=== PATIENT | male | born 1965 | race Caucasian/White ===

== ENCOUNTER 2016-04-24 00:52 | Observation (INO) | payer BC ==
--- NOTE | 2016-04-24 01:15 | EDM.PDOC ---
ED HISTORY OF PRESENT ILLNESS - General Chief Complaint: Chest Pain Stated Complaint: LEFT SHOULDER HURTS Time Seen by Provider: 04/24/16 01:04 - History of Present Illness INITIAL COMMENTS - FREE TEXT/NARRATIVE: 50-year-old male presents to the emergency room with chest pain shoulder pain and arm pain. This started 2 days ago it has not worsened with exertion but not relieved with rest. It started out as shoulder pain radiating down his arm. It extends into his neck. Today it moved into his chest the left side and substernal area. The patient was seen in the clinic this morning was started on muscle relaxants and nonsteroidals. This is made no improvement in his symptoms. the patient has no diaphoresis or redness of breath with the chest pain. the patient has had no headaches. Patient's risk factors include diabetes he is currently not taking his metformin because he cannot afford the detectable on his health plan. The patient also smokes. He is urged to quit. I am unsure of his lipid status. The patient has a alarming family history he has 2 living siblings developed coronary artery disease in a low 50she had another sibling who at age 51 of an acute coronary event, and his mother at age 54 of an acute LA. - Related Data Allergies/ADRs: Allergies Allergy/AdvReac Type Severity Reaction Status Date / Time cefaclor [From Ceclor] Allergy Anaphylactic Verified 04/24/16 01:05 Shock Sulfa (Sulfonamide Allergy Hives Verified 04/24/16 01:05 Antibiotics) Home Meds: Home Meds Cyclobenzaprine [Flexeril] 10 mg PO TID PRN 04/24/16 [History] Relafen 750 mg PO BID 04/24/16 [History] ED ROS GENERAL - Review of Systems Review Of Systems: See Below Constitutional: Reports: no symptoms HEENT: Reports: No symptoms Respiratory: Reports: no symptoms Cardiovascular: Reports: Chest pain Endocrine: Reports: no symptoms GI/Abdominal: Reports: No symptoms : Reports: no symptoms Neurological: Reports: other (his symptoms in part could be related to a process from cervical radiculopathy on down to carpal tunnel syndrome). Denies : confusion, dizziness, headache, numbness Psychiatric: Reports: No symptoms ED EXAM, GENERAL - Physical Exam Exam: See Below Exam Limited By: No limitations General Appearance: alert, no apparent distress, other (he is mildly tachycardic rate around 100 hypertensive at 175/108) Head: atraumatic, normocephalic Neck: normal inspection, supple, non-tender, full range of motion Respiratory/Chest: no respiratory distress, lungs clear, normal breath sounds Cardiovascular: regular rate, rhythm, no edema, no murmur GI/Abdominal: normal bowel sounds, soft, non tender, no organomegaly, no distention, no abnormal bruit, no mass Back Exam: normal inspection. No: CVA tenderness (L), CVA tenderness (R) Extremities: normal inspection, no pedal edema, other (examination of his left arm shows a positive Tinel's sign with distal paresthesias. Phalen's and reverse Phalen's normal palpation in the arm does not reveal any tenderness however above his shoulders in the musculature from the neck on down is tender with palpation) EKG INTERPRETATION EKG Date: 04/24/16 Rhythm: NSR Rate (beats/min): 97 [place]: LAD-left axis deviation P-wave: present QRS: other (fairly normal QRSs what could be a Q wave is noted in lead 3) ST-T: other (subtle nonspecific ST depression laterally and inferiorly) QT: normal NV/PQ Interval: normal Comparison: NA - no prior EKG EKG Interpretation Comments: abnormal no acute changes Course - Vital Signs Last Recorded V/S: Last Vital Signs Temp 36.0 C 04/24/16 00:59 Pulse 99 04/24/16 00:59 Resp 22 H 04/24/16 00:59 BP 138/93 H 04/24/16 01:42 Pulse Ox 99 04/24/16 00:59 - Orders/Labs/Meds Orders: Active Orders 24 hr Category Date Time Status Patient Status [ADT] Stat ADT 04/24/16 02:46 Active EKG 12 Lead [EKG Documentation Completion] [RC] STAT Care 04/24/16 01:33 Active Chest 1V Frontal [CR] Stat Exams 04/24/16 01:33 Ordered Nitroglycerin/D5W [Nitroglycerin 25 MG/D5W 250 ML] Med 04/24/16 02:30 Active 25 mg in 250 ml IV TITRATE Medication Orders Nitroglycerin/Dextrose (Nitroglycerin 25 Mg/D5w 250 Ml) 25 mg in 250 mls @ 3 mls/hr IV TITRATE TRICIA; 5 MCG/MIN PRN Reason: Protocol Last Titration: 04/24/16 02:40 Dose: 10 mcg/min, 6 mls/hr Admin: 04/24/16 02:25 Dose: 5 mcg/min, 3 mls/hr Labs: Laboratory Tests 04/24/16 04/24/16 04/24/16 Range/Units 01:05 01:05 01:05 WBC 9.57 H (4.23-9.07) K/mm3 RBC 5.34 (4.63-6.08) M/mm3 Hgb 16.6 (13.7-17.5) gm/L Hct 48.4 (40.1-51.0) % MCV 90.6 (79.0-92.2) fl MCH 31.1 (25.7-32.2) pg MCHC 34.3 (32.2-35.5) g/dl RDW Std Deviation 46.7 H (35.1-43.9) fL Plt Count 261 (163-337) K/mm3 MPV 9.5 (9.4-12.3) fl Neut % (Auto) 57.8 (34.0-67.9) % Lymph % (Auto) 32.9 (21.8-53.1) % [place] % (Auto) 6.6 (5.3-12.2) % Eos % (Auto) 2.1 (0.8-7.0) Baso % (Auto) 0.4 (0.1-1.2) % Neut # 5.53 H (1.78-5.38) K/mm3 Lymph # 3.15 (1.32-3.57) K/mm3 [place] # 0.63 (0.30-0.82) K/mm3 Eos # 0.20 (0.04-0.54) K/mm3 Baso # 0.04 (0.01-0.08) K/mm3 D-Dimer, Quantitative < 0.19 L (0.19-0.59) mg/L Sodium 138 (136-145) mEq/L Potassium 3.8 (3.5-5.1) mEq/L Chloride 102 (98-107) mEq/L Carbon Dioxide 28 (21-32) mEq/L Anion Gap 11.8 (5-15) BUN 6 L (7-18) mg/dL Creatinine 0.8 (0.7-1.3) mg/dL Est Cr Clr Drug Dosing 127.01 mL/min Estimated GFR (MDRD) > 60 (>60) mL/min BUN/Creatinine Ratio 7.5 L (14-18) Glucose 167 H (74-106) mg/dL Calcium 8.6 (8.5-10.1) mg/dL Total Bilirubin 0.3 (0.2-1.0) mg/dL AST 10 L (15-37) U/L ALT 22 (16-63) U/L Alkaline Phosphatase 109 (46-116) U/L Troponin I < 0.017 (0.00-0.056) ng/mL Total Protein 7.5 (6.4-8.2) g/dl Albumin 4.1 (3.4-5.0) g/dl Globulin 3.4 gm/dL Albumin/Globulin Ratio 1.2 (1-2) Meds: Medications Generic Name Dose Route Start Last Admin Trade Name Freq PRN Reason Stop Dose Admin Nitroglycerin/Dextrose 25 mg in 250 mls @ 3 mls/hr 04/24/16 02:30 04/24/16 02 :40 Nitroglycerin 25 Mg/D5w 250 Ml IV 10 mcg/min TITRATE TRICIA 6 mls/hr Protocol Titration 5 MCG/MIN Discontinued Medications Generic Name Dose Route Start Last Admin Trade Name Freq PRN Reason Stop Dose Admin Aspirin 324 mg 04/24/16 01:18 04/24/16 01:30 Aspirin PO 04/24/16 01:19 324 mg ONETIME ONE Administration Aspirin 325 mg 04/24/16 01:18 04/24/16 01:29 Ecotrin PO 04/24/16 01:19 Not Given ONETIME ONE Aspirin Confirm 04/24/16 01:29 04/24/16 02:35 Aspirin Administered 04/24/16 01:30 Not Given Dose 162 mg .ROUTE .STK-MED ONE Nitroglycerin/Dextrose Confirm 04/24/16 02:22 04/24/16 02:34 Nitroglycerin 25 Mg/D5w 250 Ml Administered 04/24/16 02:23 Not Given Dose 25 mg in 250 mls @ as directed .ROUTE .STK-MED ONE Morphine Sulfate Confirm 04/24/16 01:45 04/24/16 02:35 Morphine Administered 04/24/16 01:46 Not Given Dose 2 mg .ROUTE .STK-MED ONE Morphine Sulfate 2 mg 04/24/16 01:48 04/24/16 01:48 Morphine IVPUSH 04/24/16 01:49 2 mg ONETIME ONE Administration Morphine Sulfate 2 mg 04/24/16 02:06 04/24/16 02:08 Morphine IVPUSH 04/24/16 02:07 2 mg ONETIME STA Administration Morphine Sulfate 2 mg 04/24/16 02:27 04/24/16 02:29 Morphine IVPUSH 04/24/16 02:28 2 mg ONETIME ONE Administration Nitroglycerin 0.4 mg 04/24/16 01:18 04/24/16 01:42 Nitrostat SL 04/24/16 01:29 0.4 mg Q5M PRN Administration Chest Pain - Re-Assessments/Exams Free Text/Narrative Re-Assessment/Exam: 04/24/16 02:58 50-year-old male with a concerning family history presents with what could very easily be cervical radiculopathy however he has chest pain associated with this. He has a very concerning past medical history as well is a very concerning family history initial lab evaluation is unrevealing. The patient was treated with nitroglycerin this did not seem to help much he had modest improvement with morphine. He was started on a nitro drip because pain control is optimal. During the course of his treatment his blood pressure stabilized into a more acceptable range. Because of his concerning personal history and family history the patient will be placed on observation for rule out. Case discussed with Dr. Huff who will accept the patient Departure - Departure Time of Disposition: 02:45 Disposition: Refer to Observation Clinical Impression: Chest pain, Cervical radiculopathy Referrals: PCP,None [Primary Care Provider] - Forms: ED Department Discharge - My Orders Last 24 Hours: My Active Orders 04/24/16 01:33 EKG 12 Lead [EKG Documentation Completion] [RC] STAT Chest 1V Frontal [CR] Stat 04/24/16 02:30 Nitroglycerin/D5W [Nitroglycerin 25 MG/D5W 250 ML] 25 mg in 250 ml IV TITRATE 04/24/16 02:46 Patient Status [ADT] Stat - Assessment/Plan Last 24 Hours: My Active Orders 04/24/16 01:33 EKG 12 Lead [EKG Documentation Completion] [RC] STAT Chest 1V Frontal [CR] Stat 04/24/16 02:30 Nitroglycerin/D5W [Nitroglycerin 25 MG/D5W 250 ML] 25 mg in 250 ml IV TITRATE 04/24/16 02:46 Patient Status [ADT] Stat
[2016-04-24] MEDS ORDERED: Aspirin 325 MG Tab.EC PO ONE (01:18)
[2016-04-24] MEDS ORDERED: Aspirin 81 MG Tab.Chew PO ONE (01:18)
[2016-04-24] MEDS ORDERED: Aspirin 81 MG Tab.Chew ONE (01:29)
[2016-04-24] MEDS: Nitroglycerin 0.4 MG Tab.SL SL PRN ×3 (01:30→01:42)
[2016-04-24] MEDS ORDERED: Morphine 2 MG/ML Syringe ONE (01:45)
[2016-04-24] MEDS ORDERED: Morphine 2 MG/ML Syringe IVPUSH ONE ×2 (01:48→02:27)
[2016-04-24] MEDS ORDERED: Morphine 2 MG/ML Syringe IVPUSH STA (02:06)
[2016-04-24] MEDS ORDERED: Nitroglycerin/D5W 25 MG/250 ML BOTTLE ONE (02:22)
[2016-04-24] MEDS ORDERED: Nitroglycerin/D5W 25 MG/250 ML BOTTLE IV SCH (02:30)
[2016-04-24] MEDS ORDERED: Nitroglycerin 2% Oint 1 GM UD Packet TOP ONE (02:51)
[2016-04-24] MEDS ORDERED: HYDROmorphone 0.5 MG/0.5 ML Syringe IVPUSH ONE (02:53)
[2016-04-24] MEDS ORDERED: HYDROmorphone 0.5 MG/0.5 ML Syringe ONE (02:55)
[2016-04-24] MEDS ORDERED: 50% Dextrose in Water 50 ML Syringe IVPUSH PRN (03:40)
[2016-04-24] MEDS ORDERED: Morphine 2 MG/ML Syringe IVPUSH PRN (03:44)
[2016-04-24] MEDS ORDERED: Ondansetron 4 MG/2 ML SDV IVPUSH PRN (03:44)
[2016-04-24] MEDS ORDERED: LORazepam 2 MG/ML MDV IVPUSH PRN (03:45)
[2016-04-24] MEDS ORDERED: Nitroglycerin 0.4 MG Tab.SL SL PRN (03:46)
[2016-04-24] MEDS ORDERED: Acetaminophen/oxyCODONE 325-5 MG Tab PO PRN (08:34)
[2016-04-24] MEDS: Insulin Aspart 100 Units/ML 3 ML Pen SUBCUT SCH ×2 (08:36→11:25)
[2016-04-24] MEDS ORDERED: Cyclobenzaprine 10 MG Tab PO PRN (08:50)
--- NOTE | 2016-04-24 10:01 | CR ---
Chest: Portable view of the chest was obtained. Comparison: No previous study. Heart size and mediastinum are normal. Minimal atelectasis is noted within both lung bases. Lungs otherwise are clear. Bony structures are grossly intact. Impression: 1. Minimal bibasilar atelectasis. 2. Portable chest x-ray is otherwise unremarkable. Diagnostic code #2
[2016-04-24] MEDS ORDERED: Ketorolac 30 MG/ML SDV IVPUSH ONE (10:41)
[2016-04-24] MEDS ORDERED: Acetaminophen/HYDROcodone 325-10 MG Tab PO PRN (10:45)
[2016-04-24 11:28] VITALS: BP 148/90
--- NOTE | 2016-04-24 13:46 | PCM.HP ---
H&P History of Present Illness - General Date of Service: 04/24/16 Admit Problem/Dx: Admission Diagnosis/Problem Admission Diagnosis/Problem Chest pain Source of Information: Patient, Provider History Limitations: Reports: No limitations - History of Present Illness Initial Comments - Free Text/Narative: 50 year old male with a history of diabetes presents with a complaint of cervical pain not precipitated by trauma associated with left shoulder discomfort as well as numbness in the hands. reportedly woke up 2 days [employer] with the chief complaint. ED physician also stated that he complained of chest pain, but denied it to the hospitalist service. He stated that he has not been able to sleep, received two prescriptions for back discomfort after being seen in an outpatient clinic. He reports taking the medication a full 24 hours before presenting to the ED. The patient has significant risk factors for CAD, he was admitted for a chest pain eval as well as back pain medical management. he has declined a stress test as well as diabetic meds and BS checks this am. He was admitted at 0300 hour today. Onset of Symptoms: Reports: sudden Symptom Onset Date: 04/22/16 Duration of Symptoms: Reports: Day(s):, Getting worse Location: Reports: neck, radiates to: (LUE) Quality: Reports: Sharp, Stabbing Severity: severe Improves with: Reports: None Worsens with: Reports: Movement Context: Reports: rest Associated Symptoms: Reports: weakness (LUE) Left Shoulder Pain Score (Numeric/FACES): 8 - Related Data Allergies/Adverse Reactions: Allergies Allergy/AdvReac Type Severity Reaction Status Date / Time cefaclor [From Ceclor] Allergy Anaphylactic Verified 04/25/16 12:41 Shock Sulfa (Sulfonamide Allergy Hives Verified 04/25/16 12:41 Antibiotics) Home Medications: Home Meds Cyclobenzaprine [Flexeril] 10 mg PO TID PRN 04/24/16 [History] Relafen 750 mg PO BID 04/24/16 [History] Gabapentin [Neurontin] 300 mg PO DAILY #30 cap 04/25/16 [Rx] oxyCODONE HCl/Acetaminophen [Percocet 5-325 mg Tablet] 1 each PO Q6HR PRN #30 tablet 04/25/16 [Rx] Past Medical History HEENT History: Reports: Impaired vision Cardiovascular History: Reports: High cholesterol Respiratory History: Reports: Asthma, Sleep apnea, SOB Other Respiratory History: Pt states all this occured 20 years ago and then he lost 130lbs. Musculoskeletal History: Reports: Amputation Other Musculoskeletal History: left middle finger Neurological History: Reports: Neuropathy, diabetic Endocrine/Metabolic History: Reports: Diabetes, type II Hematologic History: Reports: Hemochromatosis Other Hematologic History: Pt states he had a test came back pos. and was put on treatment for 9 months to make sure he never got it. - Infectious Disease History Infectious Disease History: Reports: Chicken pox, Shingles Other Infectious Disease History: Pt states he thin ks he had shingles once about 15 years ago. - Past Surgical History HEENT Surgical History: Reports: Tonsillectomy Other HEENT Surgeries/Procedures: Tonsilectomy x's2. Cardiovascular Surgical History: Reports: Other (see below) Other Cardiovascular Surgeries/Procedures: Pt states he did not have a stent placed but had a catheter go in through his groin and seperate 2 things 20 years ago. Respiratory Surgical History: Reports: None Endocrine Surgical History: Reports: None Neurological Surgical History: Reports: None Musculoskeletal Surgical History: Reports: Amputation Social & Family History - Family History Family Medical History: Noncontributory Cardiac: Reports: CAD, CT Other Cardiac Family History: father mother brother and grandparents. Brother with stents. Respiratory: Reports: None Other GI Family History: 3 of Father's brothers dies of stomach CA. Endocrine/Metabolic: Reports: Diabetes, type II Oncologic: Reports: Other (see below) Other Oncologic Family History: Stomach CA - Tobacco Use Smoking Status *Q: Current Every Day Smoker Years of Tobacco use: 9 Packs/Tins Daily: 1 - Caffeine Use Caffeine Use: Reports: Soda - Recreational Drug Use Recreational Drug Use: No H&P Review of Systems - Review of Systems: Review Of Systems: See Below General: Reports: no symptoms HEENT: Reports: no symptoms Pulmonary: Reports: no symptoms Cardiovascular: Reports: no symptoms Gastrointestinal: Reports: No symptoms Genitourinary: Reports: no symptoms Musculoskeletal: Reports: neck pain, shoulder pain (left), arm pain (left) Psychiatric: Reports: no symptoms Neurological: Reports: no symptoms Hematologic/Lymphatic: Reports: no symptoms Immunologic: Reports: no symptoms Exam - Exam Exam: See Below - Vital Signs Vital Signs: Last Vital Signs Temp 36.7 C 04/24/16 11:27 Pulse 99 04/24/16 00:59 Resp 16 04/24/16 11:27 BP 148/90 H 04/24/16 11:27 Pulse Ox 98 04/24/16 11:27 Weight: 111.674 kg - Exam Quality Assessment: DVT prophylaxis General: alert, oriented, mild distress HEENT: Conjunctiva clear, EACs clear, EOMI, Mucosa moist & pink, Nares patent, Normal nasal septum, Pupils equal, Pupils reactive Neck: trachea midline, other (decrease motion, pain with active and passive movement.) Lungs: Normal respiratory effort Cardiovascular: regular rate, regular rhythm Abdomen: normal bowel sounds, soft (Male) Exam: Deferred Rectal (Males) Exam: Deferred Back Exam: normal inspection Extremities: normal pulses Skin: warm Neurological: cranial nerves intact Neuro Extensive - Mental Status: alert, oriented x3 Neuro Extensive - Motor, Sensory, Reflexes: CN II-XII intact Psychiatric: alert, depressed, other (flat affect, impulsive, poor insight) - Patient Data Lab Results last 24 hrs: Laboratory Results - last 24 hr 04/24/16 04/24/16 Range/Units 05:02 05:02 Sodium 138 (136-145) mEq/L Potassium 4.2 (3.5-5.1) mEq/L Chloride 104 (98-107) mEq/L Carbon Dioxide 26 (21-32) mEq/L Anion Gap 12.2 (5-15) BUN 7 (7-18) mg/dL Creatinine 0.7 (0.7-1.3) mg/dL Est Cr Clr Drug Dosing 145.15 mL/min Estimated GFR (MDRD) > 60 (>60) mL/min BUN/Creatinine Ratio 10.0 L (14-18) Glucose 176 H (74-106) mg/dL Calcium 8.3 L (8.5-10.1) mg/dL CK-MB (CK-2) 1.6 (0-3.6) ng/ml Troponin I < 0.017 (0.00-0.056) ng/mL Triglycerides 74 (<150) mg/dL Cholesterol 196 (<200) mg/dL LDL Cholesterol Direct 151 H* (<100) mg/dL HDL Cholesterol 45.0 (40-59) mg/dL Result Diagrams: 04/24/16 01:05 04/24/16 05:02 *Q Meaningful Use (ADM) - VTE *Q VTE Criteria *Q: - Stroke *Q Stroke Criteria *Q: - AMI *Q AMI Criteria *Q: - Problem List (1) Depression SNOMED Code(s): 19557776 ICD Code: F32.9 - MAJOR DEPRESSIVE DISORDER, SINGLE EPISODE, UNSPECIFIED Status: Acute Qualifiers: Depression Type: unspecified Qualified Code(s): F32.9 - Major depressive disorder, single episode, unspecified (2) Hyperlipidemia LDL goal <130 SNOMED Code(s): 75419150 ICD Code: E78.5 - HYPERLIPIDEMIA, UNSPECIFIED Status: Chronic (3) Cervical radiculopathy SNOMED Code(s): 36861916 ICD Code: M54.12 - RADICULOPATHY, CERVICAL REGION Status: Acute (4) Chest pain SNOMED Code(s): 98577692 ICD Code: R07.9 - CHEST PAIN, UNSPECIFIED Status: Acute Qualifiers: Chest pain type: unspecified Qualified Code(s): R07.9 - Chest pain, unspecified Problem List Initiated/Reviewed/Updated: Yes Orders Last 24hrs: Active Orders 24 hr Category Date Time Status Patient Status [ADT] Stat ADT 04/24/16 02:54 Active Antiembolic Devices [RC] PER UNIT ROUTINE Care 04/24/16 09:49 Active Bedrest Bathroom Privileges [RC] QSHIFT Care 04/24/16 03:39 Active Blood Glucose Check, Bedside [RC] QIDACANDBED Care 04/24/16 03:39 Active Diabetes Education [RC] DAILY Care 04/24/16 10:12 Active Notify Provider Consults [RC] ASDIRECTED Care 04/24/16 12:22 Active Consult to Case Management [CONS] Routine Cons 04/24/16 09:58 Active Consult to Dietary [Consult to Outreach Specialist] [CONS] Cons 04/24/16 10:13 Active Routine Consult to Physician [CONS] Routine Cons 04/24/16 12:22 Active OT Evaluation and Treatment [CONS] Routine Cons 04/24/16 08:50 Active PT Evaluation and Treatment [CONS] Routine Cons 04/24/16 08:50 Active ADA Diabetic [[place] [employer] Diet] [DIET Diet 04/24/16 Breakfast Active ] Cardiolite Stress Test [Myocardial Perf Spect Multi] [ Exams 04/25/16 06:00 Stop Req NM] Routine Cervical Spine Comp w Cont [MR] Routine Exams 04/24/16 10:44 Ordered BASIC METABOLIC PANEL,BMP [CHEM] Routine Lab 04/25/16 05:00 Ordered CBC WITH AUTO DIFF [HEME] Routine Lab 04/25/16 05:00 Ordered GLYCOSYLATED HEMOGLOBIN,HGBA1C [CHEM] Routine Lab 04/24/16 14:00 Ordered MAGNESIUM [CHEM] Routine Lab 04/25/16 05:00 Ordered TROPONIN I [CHEM] Routine Lab 04/24/16 14:00 Ordered Acetaminophen/HYDROcodone [[place] 325-10 MG] Med 04/24/16 10:45 Active 1 tab PO Q6H PRN Acetaminophen/oxyCODONE [Percocet 325-5 MG] Med 04/24/16 08:34 Active 2 tab PO Q4H PRN Cyclobenzaprine [Flexeril] Med 04/24/16 08:50 Active 10 mg PO TID PRN Dextrose 50% in Water Med 04/24/16 03:40 Active 50 ml IVPUSH ASDIRECTED PRN Insulin Aspart [NovoLOG] Med 04/24/16 07:00 Active See Protocol SUBCUT QIDACANDBED Ketorolac [Toradol] Med 04/24/16 16:45 Active 30 mg IVPUSH Q6H LORazepam [Ativan] Med 04/24/16 03:45 Active 1 mg IVPUSH BEDTIME PRN Morphine Med 04/24/16 03:44 Active 1 mg IVPUSH Q4H PRN Ondansetron [Zofran] Med 04/24/16 03:44 Active 4 mg IVPUSH Q8H PRN Simvastatin [Zocor] Med 04/24/16 21:00 Active 10 mg PO BEDTIME LAUREN Hose [Antiembolic Hose] [OM.PC] Routine Oth 04/24/16 09:49 Ordered Code Status [Resuscitation Status] Routine Resus Stat 04/24/16 03:58 Ordered Medication Orders Acetaminophen/Hydrocodone Bitart ([place] 325-10 Mg) 1 tab PO Q6H PRN PRN Reason: Pain (severe 7-10) Last Admin: 04/24/16 11:23 Dose: 1 tab Cyclobenzaprine HCl (Flexeril) 10 mg PO TID PRN PRN Reason: neck/back pain Last Admin: 04/24/16 12:23 Dose: 10 mg Dextrose/Water (Dextrose 50% In Water) 50 ml IVPUSH ASDIRECTED PRN PRN Reason: Hypoglycemia Insulin Aspart (Novolog) 0 unit SUBCUT QIDACANDBED TRICIA PRN Reason: Protocol Last Admin: 04/24/16 11:25 Dose: Not Given Admin: 04/24/16 08:36 Dose: Not Given Ketorolac Tromethamine (Toradol) 30 mg IVPUSH Q6H [facility] Stop: 04/26/16 16:46 Lorazepam (Ativan) 1 mg IVPUSH BEDTIME PRN PRN Reason: Insomnia Last Admin: 04/24/16 06:02 Dose: 1 mg Morphine Sulfate (Morphine) 1 mg IVPUSH Q4H PRN PRN Reason: Pain Last Admin: 04/24/16 04:38 Dose: 1 mg Ondansetron HCl (Zofran) 4 mg IVPUSH Q8H PRN PRN Reason: Nausea Oxycodone/Acetaminophen (Percocet 325-5 Mg) 2 tab PO Q4H PRN PRN Reason: Pain Simvastatin (Zocor) 10 mg PO BEDTIME [facility] Assessment/Plan Comment:: Impression: CP, atypical CAD risk factors, negative cardiac enzymes Cervical radiculopathy Lipid status unknown Diabetes mellitus Can not exclude depression, very flat affect Plan: Chest pain protocol Back Pain management with analgesics, may benefit from IV steroids. Tobacco cessation education Diabetic teaching MRI of cervical region without contrast. Psych eval as above with Dr Dillard. DVT/GI prophylaxis
--- NOTE | 2016-04-24 15:15 | PCM.DCSUM1 ---
Discharge Summary - Hospital Course Free Text/Narrative:: 50 year old male presented with story of 2 days of cervical pain which also radiated to the LUE. Denied any real chest pain, but has a significant family history of CAD as well as additional risk factors. Stare that the pain occurred without recent trauma, had been seen in a clinic and reportedly toook a full 24 course of NSAID, Relafen as well as Flexeril. The patient did not have ischemia with 2 negative TNs; refused a stress test or statin after haveing a FLP. Stated that, "I will have to get bllod work every 3 months which because of Obamacare, my insurance will not pay for it." He declined any cardiac work up, but did have a 2D echo, the stress test was cancelled. He refused accuchecks, sliding scale insulin coverage, had an MRI ordered for the cervical spine, went to the radiology dept only to state that he is unable to lay down. He was offered the possibility of attempting the study later after he received analgesic. He had declined MSO4 as well as Flexeril in the hospital. He began walking out with his clothes and coat on, refused to sign AMA paperwork after counseling on the danger of leaving. Primary Dx Cervical radiculopathy Atypical CP DM Tobacco Dependence Query Depression - Discharge Data Discharge Date: 04/24/16 Discharge Disposition: Against Medical Advice 07 Condition: Good - Discharge Diagnosis/Problem(s) (1) Depression SNOMED Code(s): 24407560 ICD Code: F32.9 - MAJOR DEPRESSIVE DISORDER, SINGLE EPISODE, UNSPECIFIED Status: Acute Current Visit: Yes Qualifiers: Depression Type: unspecified Qualified Code(s): F32.9 - Major depressive disorder, single episode, unspecified (2) Hyperlipidemia LDL goal <130 SNOMED Code(s): 68125155 ICD Code: E78.5 - HYPERLIPIDEMIA, UNSPECIFIED Status: Chronic Current Visit: Yes (3) Cervical radiculopathy SNOMED Code(s): 84870165 ICD Code: M54.12 - RADICULOPATHY, CERVICAL REGION Status: Acute Current Visit: Yes (4) Chest pain SNOMED Code(s): 42289136 ICD Code: R07.9 - CHEST PAIN, UNSPECIFIED Status: Acute Current Visit: Yes Qualifiers: Chest pain type: unspecified Qualified Code(s): R07.9 - Chest pain, unspecified - Patient Summary/Data Consults: Consultations 04/24/16 08:50 OT Evaluation and Treatment [CONS] Routine PT Evaluation and Treatment [CONS] Routine 04/24/16 09:58 Consult to Case Management [CONS] Routine 04/24/16 10:13 Consult to Dietary [Consult to [employer]] [CONS] Routine 04/24/16 12:22 Consult to Physician [CONS] Routine - Patient Instructions Diet: Heart Healthy Diet, Diabetic Diet Activity: As Tolerated, No Lifting Over 20 Pounds (avoid left arm) Driving: May Drive Today Showering/Bathing: May Shower Notify Provider of: Increased Pain - Discharge Plan Home Medications: Home Meds Aspirin 325 mg PO BID PRN 04/24/16 [History] Cyclobenzaprine [Flexeril] 10 mg PO TID PRN 04/24/16 [History] D-Methorphan/PE/Acetaminophen [Day Time Cold-Flu Softgel] 2 cap PO BID PRN 04/24 [History] Relafen 750 mg PO BID 04/24/16 [History] Patient Handouts: Smoking Cessation, Tips for Success, [id number], Angina Pectoris, [id number] Forms: ED Department Discharge Referrals: PCP,None [Primary Care Provider] - - Discharge Summary/Plan Comment DC Time >30 min.: No - General Info Date of Service: 04/24/16 Functional Status: Reports: tolerating diet, ambulating - Review of Systems General: Reports: no symptoms HEENT: Reports: no symptoms Pulmonary: Reports: no symptoms Cardiovascular: Reports: no symptoms Gastrointestinal: Reports: No symptoms Genitourinary: Reports: no symptoms Musculoskeletal: Reports: neck pain. Denies: no symptoms Skin: Reports: no symptoms Neurological: Reports: no symptoms Psychiatric: Reports: no symptoms - Patient Data Vitals - Most Recent: Last Vital Signs Temp 36.7 C 04/24/16 11:27 Pulse 99 04/24/16 00:59 Resp 16 04/24/16 11:27 BP 148/90 H 04/24/16 11:27 Pulse Ox 98 04/24/16 11:27 Weight - Most Recent: 111.674 kg I&O - Last 24 hours: Intake & Output 04/23/16 04/24/16 04/24/16 22:59 06:59 14:59 Intake Total 0 0 Output Total 0 Balance 0 0 Lab Results - Last 24 hrs: Laboratory Results - last 24 hr 04/24/16 04/24/16 Range/Units 05:02 05:02 Sodium 138 (136-145) mEq/L Potassium 4.2 (3.5-5.1) mEq/L Chloride 104 (98-107) mEq/L Carbon Dioxide 26 (21-32) mEq/L Anion Gap 12.2 (5-15) BUN 7 (7-18) mg/dL Creatinine 0.7 (0.7-1.3) mg/dL Est Cr Clr Drug Dosing 145.15 mL/min Estimated GFR (MDRD) > 60 (>60) mL/min BUN/Creatinine Ratio 10.0 L (14-18) Glucose 176 H (74-106) mg/dL Calcium 8.3 L (8.5-10.1) mg/dL CK-MB (CK-2) 1.6 (0-3.6) ng/ml Troponin I < 0.017 (0.00-0.056) ng/mL Triglycerides 74 (<150) mg/dL Cholesterol 196 (<200) mg/dL LDL Cholesterol Direct 151 H* (<100) mg/dL HDL Cholesterol 45.0 (40-59) mg/dL Med Orders - Current: Current Medications Acetaminophen/Hydrocodone Bitart (Percival 325-10 Mg) 1 tab PO Q6H PRN PRN Reason: Pain (severe 7-10) Last Admin: 04/24/16 11:23 Dose: 1 tab Cyclobenzaprine HCl (Flexeril) 10 mg PO TID PRN PRN Reason: neck/back pain Last Admin: 04/24/16 12:23 Dose: 10 mg Dextrose/Water (Dextrose 50% In Water) 50 ml IVPUSH ASDIRECTED PRN PRN Reason: Hypoglycemia Insulin Aspart (Novolog) 0 unit SUBCUT QIDACANDBED [facility] PRN Reason: Protocol Last Admin: 04/24/16 11:25 Dose: Not Given Ketorolac Tromethamine (Toradol) 30 mg IVPUSH Q6H [facility] Stop: 04/26/16 16:46 Lorazepam (Ativan) 1 mg IVPUSH BEDTIME PRN PRN Reason: Insomnia Last Admin: 04/24/16 06:02 Dose: 1 mg Morphine Sulfate (Morphine) 1 mg IVPUSH Q4H PRN PRN Reason: Pain Last Admin: 04/24/16 04:38 Dose: 1 mg Ondansetron HCl (Zofran) 4 mg IVPUSH Q8H PRN PRN Reason: Nausea Oxycodone/Acetaminophen (Percocet 325-5 Mg) 2 tab PO Q4H PRN PRN Reason: Pain Simvastatin (Zocor) 10 mg PO BEDTIME [facility]ICIA Discontinued Medications Aspirin (Aspirin) 324 mg PO ONETIME ONE Stop: 04/24/16 01:19 Last Admin: 04/24/16 01:30 Dose: 324 mg Aspirin (Ecotrin) 325 mg PO ONETIME ONE Stop: 04/24/16 01:19 Last Admin: 04/24/16 01:29 Dose: Not Given Aspirin (Aspirin) Confirm Administered Dose 162 mg .ROUTE .STK-MED ONE Stop: 04/24/16 01:30 Last Admin: 04/24/16 02:35 Dose: Not Given Hydromorphone HCl (Dilaudid) 0.5 mg IVPUSH ONETIME ONE Stop: 04/24/16 02:54 Last Admin: 04/24/16 02:56 Dose: 0.5 mg Hydromorphone HCl (Dilaudid) Confirm Administered Dose 0.5 mg .ROUTE .STK-MED ONE Stop: 04/24/16 02:56 Last Admin: 04/24/16 03:04 Dose: Not Given Nitroglycerin/Dextrose (Nitroglycerin 25 Mg/D5w 250 Ml) Confirm Administered Dose 25 mg in 250 mls @ as directed .ROUTE .STK-MED ONE Stop: 04/24/16 02:23 Last Admin: 04/24/16 02:34 Dose: Not Given Nitroglycerin/Dextrose (Nitroglycerin 25 Mg/D5w 250 Ml) 25 mg in 250 mls @ 3 mls/hr IV TITRATE TRICIA; 5 MCG/MIN PRN Reason: Protocol Last Titration: 04/24/16 02:40 Dose: 10 mcg/min, 6 mls/hr Ketorolac Tromethamine (Toradol) 60 mg IVPUSH ONETIME ONE Stop: 04/24/16 10:42 Last Admin: 04/24/16 10:52 Dose: 60 mg Morphine Sulfate (Morphine) Confirm Administered Dose 2 mg .ROUTE .STK-MED ONE Stop: 04/24/16 01:46 Last Admin: 04/24/16 02:35 Dose: Not Given Morphine Sulfate (Morphine) 2 mg IVPUSH ONETIME ONE Stop: 04/24/16 01:49 Last Admin: 04/24/16 01:48 Dose: 2 mg Morphine Sulfate (Morphine) 2 mg IVPUSH ONETIME STA Stop: 04/24/16 02:07 Last Admin: 04/24/16 02:08 Dose: 2 mg Morphine Sulfate (Morphine) 2 mg IVPUSH ONETIME ONE Stop: 04/24/16 02:28 Last Admin: 04/24/16 02:29 Dose: 2 mg Nitroglycerin (Nitrostat) 0.4 mg SL Q5M PRN PRN Reason: Chest Pain Stop: 04/24/16 01:29 Last Admin: 04/24/16 01:42 Dose: 0.4 mg Nitroglycerin (Nitro-Bid 2%) 1 gm TOP ONETIME ONE Stop: 04/24/16 02:52 Last Admin: 04/24/16 02:57 Dose: 1 gm Nitroglycerin (Nitrostat) 0.4 mg SL Q5M PRN PRN Reason: Chest Pain Stop: 04/24/16 03:57 - Exam General: Reports: alert, oriented, other (flat affect) HEENT: Reports: Pupils equal, Pupils reactive, EOMI Neck: Reports: trachea midline Lungs: Reports: Normal respiratory effort Cardiovascular: Reports: regular rate, regular rhythm Abdomen: Reports: bowel sounds present, soft, no tenderness, no distension (Male) Exam: Deferred Rectal (Males) Exam: Deferred Back Exam: Reports: normal inspection Extremities: Reports: normal pulses Skin: Reports: warm Neurological: Reports: other (mild numbness left hand, ulnaar region) Psy/Mental Status: Reports: alert, depressed *Q Meaningful Use (DIS) - VTE *Q VTE Criteria *Q: - Stroke *Q Stroke Criteria *Q: - AMI *Q AMI Criteria *Q:
[2016-04-24] MEDS ORDERED: Ketorolac 30 MG/ML SDV IVPUSH SCH (16:45)
[2016-04-24] MEDS ORDERED: Simvastatin 10 MG Tab PO SCH (21:00)
== END 2016-04-24 12:50 | disposition left against medical advice (07) ==
LOC: JD.ED 00:52 → JD.ICU 02:46
PROVIDERS: ADMIT Internal Medicine Cardiovascular Disease; ATTEND Internal Medicine Cardiovascular Disease
DX: R07.89 Other chest pain (principal); M54.12 Radiculopathy, cervical region; E11.21 Type 2 diabetes mellitus with diabetic nephropathy; F17.210 Nicotine dependence, cigarettes, uncomplicated; F32.9 Major depressive disorder, single episode, unspecified; E78.5 Hyperlipidemia, unspecified; E78.00 Pure hypercholesterolemia, unspecified; J45.909 Unspecified asthma, uncomplicated; J98.11 Atelectasis; G47.30 Sleep apnea, unspecified; Z79.1 Long term (current) use of non-steroidal anti-inflammatories (NSAID); Z88.1 Allergy status to other antibiotic agents; Z88.2 Allergy status to sulfonamides; Z82.49 Family history of ischemic heart disease and other diseases of the circulatory system
CPT/HCPCS: 36415; 71010; 80048; 80053; 80061; 82553; 84443; 84484; 85025; 85379; 93005; 93306; 96365; 96375; 96376; 99285; A9270; G0378; J1170; J1885; J2060; J2270

== ENCOUNTER 2016-04-25 12:16 | Emergency (ER) | payer BC ==
[2016-04-25 12:41] VITALS: BP 174/114
[2016-04-25] MEDS ORDERED: Ketorolac 60 MG/2 ML SDV IM ONE (13:04)
--- NOTE | 2016-04-25 13:06 | EDM.PDOC ---
ED HPI Trauma - General Chief Complaint: Upper Extremity Injury/Pain Stated Complaint: LEFT SHOULDER PAIN Time Seen by Provider: 04/25/16 12:56 Source: Reports: Patient History Limitations: Reports: No limitations - History of Present Illness INITIAL COMMENTS - FREE TEXT/NARRATIVE: Patient presents for evaluation treatment of left upper back, left shoulder and left arm pain. Patient reports the pain began suddenly Thursday night around midnight. He was seen on Thursday in the clinic for this he was put on nabumentone and flexeril. He then presented to the ER on Thursday night. He was admitted to the hospital for a chest pain rule out. Troponins and EKG were within normal limits. He did have an echocardiogram done. Refused a stress test. Patient eloped on . Patient states while in the hospital he was given morphine and Dilaudid. He reports that he continued to have pain but this did help with his pain. An MRI of the cervical spine was scheduled, however, he was unable to lay on the MRI bed due to the pain. patient presents today as he states that he is having worsening pain and can no longer take the pain. He reports pain to the left upper back, left shoulder and left arm. He reports numbness and tingling extending into the left arm. He also notes some muscle atrophy to the left arm. He states he has good range of motion of the shoulder. He denies any trauma to his shoulder or back. Patient is left-handed. Pain/Injury Location: Reports: lower extremity, left Allergies/ADRs: Allergies cefaclor [From Ceclor] Allergy (Verified 04/25/16 12:41) Anaphylactic Shock Sulfa (Sulfonamide Antibiotics) Allergy (Verified 04/25/16 12:41) Hives Home Medications: Ambulatory Orders Cyclobenzaprine [Flexeril] 10 mg PO TID PRN 04/24/16 [Confirmed 04/25/16] Relafen 750 mg PO BID 04/24/16 [Confirmed 04/25/16] Gabapentin [Neurontin] 300 mg PO DAILY #30 cap 04/25/16 oxyCODONE HCl/Acetaminophen [Percocet 5-325 mg Tablet] 1 each PO Q6HR PRN #30 tablet 04/25/16 Past Medical History HEENT History: Reports: Impaired vision Cardiovascular History: Reports: High cholesterol Respiratory History: Reports: Asthma, Sleep apnea, SOB Other Respiratory History: Pt states all this occured 20 years ago and then he lost 130lbs. Musculoskeletal History: Reports: Amputation Other Musculoskeletal History: left middle finger Neurological History: Reports: Neuropathy, diabetic Endocrine/Metabolic History: Reports: Diabetes, type II Hematologic History: Reports: Hemochromatosis Other Hematologic History: Pt states he had a test came back pos. and was put on treatment for 9 months to make sure he never got it. - Infectious Disease History Infectious Disease History: Reports: Chicken pox, Shingles Other Infectious Disease History: Pt states he thin ks he had shingles once about 15 years ago. - Past Surgical History HEENT Surgical History: Reports: Tonsillectomy Other HEENT Surgeries/Procedures: Tonsilectomy x's2. Cardiovascular Surgical History: Reports: Other (see below) Other Cardiovascular Surgeries/Procedures: Pt states he did not have a stent placed but had a catheter go in through his groin and seperate 2 things 20 years ago. Respiratory Surgical History: Reports: None Endocrine Surgical History: Reports: None Neurological Surgical History: Reports: None Musculoskeletal Surgical History: Reports: Amputation Social & Family History - Family History Family Medical History: Noncontributory Cardiac: Reports: CAD, [place] Other Cardiac Family History: father mother brother and grandparents. Brother with stents. Respiratory: Reports: None Other GI Family History: 3 of Father's brothers dies of stomach CA. Endocrine/Metabolic: Reports: Diabetes, type II Oncologic: Reports: Other (see below) Other Oncologic Family History: Stomach CA - Tobacco Use Smoking Status *Q: Current Every Day Smoker Years of Tobacco use: 9 Packs/Tins Daily: 1 - Caffeine Use Caffeine Use: Reports: Soda - Recreational Drug Use Recreational Drug Use: No Review of Systems - Review of Systems Review Of Systems: See Below Musculoskeletal: Reports: shoulder pain (left), arm pain (left), back pain ( left upper back). Denies: neck pain Neurological: Reports: numbness, tingling Trauma Exam - Physical Exam Exam: See Below Exam Limited By: No limitations General Appearance: Reports: alert, WD/WN, mild distress Throat/Mouth: Reports: Normal inspection Neck: Reports: normal alignment, normal inspection, painful range of motion ( rotation to the left, flexion and extension cause pain), paraspinous muscle tender (left rhomboid and trap), other (slight muscle atrophy noted to the left trapezius ). Denies: spinous processes tender Respiratory Exam: Reports: no respiratory distress, lungs clear, normal breath sounds Cardiovascular: Reports: normal peripheral pulses, regular rate, rhythm, no murmur Extremities: Reports: no evidence of injury, normal range of motion (left shoulder), non-tender (left shoulder) Neurologic: Reports: alert, normal mood/affect, other (stretcher helper strength 5/5 bilaterally) Skin: Reports: Normal color, Warm/dry Course - Vital Signs Last Recorded V/S: Last Vital Signs Temp 36.8 C 04/25/16 12:37 Pulse 116 H 04/25/16 12:37 Resp 18 04/25/16 12:37 BP 174/114 H 04/25/16 12:37 Pulse Ox 100 04/25/16 12:37 - Orders/Labs/Meds Orders: Active Orders 24 hr Category Date Time Status Peripheral IV Care [RC] . DIRECTED Care 04/25/16 14:44 Active Peripheral IV Insertion Adult [OM.PC] Routine Oth 04/25/16 14:43 Ordered Meds: Medications Discontinued Medications Generic Name Dose Route Start Last Admin Trade Name Freq PRN Reason Stop Dose Admin Ketorolac Tromethamine 60 mg 04/25/16 13:04 04/25/16 13:27 Toradol IM 04/25/16 13:05 60 mg ONETIME ONE Administration Midazolam HCl 2 mg 04/25/16 14:43 04/25/16 15:02 Versed 1 Mg/Ml IVPUSH 04/25/16 14:44 2 mg ONETIME ONE Administration Sodium Chloride 10 ml 04/25/16 14:43 04/25/16 15:03 Saline Flush FLUSH 10 ml ASDIRECTED PRN Administration Keep Vein Open - Radiology Interpretation Free Text/Narrative:: Cervical spine [address] Peres: 1. Degenerative change at C5- C6 and C6-C7 as noted. Thoracic spine [address] Peres : 1. Scattered endplate osteophytes are seen within the lower cervical spine. Scattered anterior and lateral osteophytes are noted within mid and lower thoracic spine. Minimal compression deformities of T8 and T9 are noted which are likely old. Pedicles are intact. No subluxation or fracture is seen. minimal disc space narrowing is noted at T9-t10. MRI cervical spine impression per Dr. Peres: 1. multiple levels of neural foraminal stenosis with diffuse edgenerative chagne as described. 2. Broad based disc bulge at C6-C7 with posterolateral disc herniation to the left side projecting into the left neural foramina causing severe left-sided neural foraminal stenosis. MRI thoracic spine impression per Dr. Peres: 1. Schmorl node deformities with slight associated disc space narrowing which is developmental. 2. No significant posterior disc bulge is seen. - Re-Assessments/Exams Free Text/Narrative Re-Assessment/Exam: 04/25/16 13:17 Patient drove to the ER today. Will give IM toradol for pain relief at this time. 04/25/16 14:38 Reviewed xrays with the patient. He requires an MRI to further evaluate to rule out disc herniation causing cervical rediculopathy. Able to get an MRI today. Offered MRI under sedation, would require pre-op. Patient would like to obtain MRI today. He states he will tolerate pain. Would like to find out what is going on. Will give 2mg IV versed prior to MRI. 04/25/16 16:39 Patient tolerated MRI, had significant pain. Reviewed MRI results with the patient. He requires neurosurgery consultation. Will discharge home at this time with instructions to follow-up Thursday with neurosurgery for appointment. Will start gabapentin and percocet for pain control. Departure - Departure Time of Disposition: 16:28 Disposition: Home, Self-Care 01 Condition: fair Clinical Impression: Herniated disc, cervical Prescriptions: oxyCODONE HCl/Acetaminophen [Percocet 5-325 mg Tablet] 1 each PO Q6HR PRN #30 tablet PRN Reason: Pain (Severe 7-10) Gabapentin [Neurontin] 300 mg PO DAILY #30 cap Instructions: Herniated Disk, [id number] Referrals: PCP,None [Primary Care Provider] - Kae Blue PA-C [Physician Cloth Hand] - Jonnathan Waller MD [Consulting Physician] - Forms: ED Department Discharge Additional Instructions: Call Dr. Waller's office in [place] on Thursday for an appointment. Call . Let them know you have a disc bulge at C6-C7 with herniation to the left projecting into the left neural foramina. MRI has been sent to [facility] in [place]. Percocet 1-2 tabs PO every 4-6 hours prn pain. No driving or operating machinery within 12 hours of taking the percocet. Gabapentin as prescribed. 1 tab PO daily, then 1 tab PO bid, then one tab PO tid and continue on one tab PO tid Please return to the ER for any problems, questions or concerns. Please let ER or Kae Mila know if you need additional help with the referral process. - My Orders Last 24 Hours: My Active Orders 04/25/16 14:43 Peripheral IV Insertion Adult [OM.PC] Routine 04/25/16 14:44 Peripheral IV Care [RC] . DIRECTED - Assessment/Plan Last 24 Hours: My Active Orders 04/25/16 14:43 Peripheral IV Insertion Adult [OM.PC] Routine 04/25/16 14:44 Peripheral IV Care [RC] . DIRECTED
--- NOTE | 2016-04-25 14:16 | CR ---
Cervical spine: AP, swimmer's, lateral and odontoid views were obtained. Comparison: No previous cervical spine imaging. Mild disc space narrowing is noted at C6-C7. Anterior osteophytes are noted at C5-C6 and C6-C7. Calcification noted within the anterior annulus at C6-C7 which is felt to be degenerative in etiology. Mild posterior osteophytes are noted at C6-C7. Prevertebral soft tissues are normal. Vertebral body heights are maintained. No subluxation or fracture is seen. Impression: 1. Degenerative change at C5-C6 and C6-C7 as noted above. Diagnostic code #2
--- NOTE | 2016-04-25 14:16 | CR ---
Thoracic spine: AP, lateral and swimmer's views of the thoracic spine were obtained. Scattered endplate osteophytes are seen within the lower cervical spine. Scattered anterior and lateral osteophytes are noted within mid and lower thoracic spine. Minimal compression deformities of T8 and T9 are noted which are likely old. Pedicles are intact. No subluxation or fracture is seen. Minimal disc space narrowing is noted at T9-T10. Impression: 1. Degenerative change as noted above. Diagnostic code #2
[2016-04-25] MEDS ORDERED: Sodium Chloride 0.9% 10 ML Syringe FLUSH PRN (14:43)
[2016-04-25] MEDS ORDERED: Midazolam 1 MG/ML 2 ML SDV IVPUSH ONE (14:43)
--- NOTE | 2016-04-25 16:04 | MR ---
MRI cervical spine Technique: T2 gradient echo axial images were obtained from above the C2-C3 disc inferiorly through the C7-T1 disc. T1 and T2 weighted sagittal images were obtained through the cervical spine. Comparison: Previous plain film cervical spine study performed on the same day. Findings: C2-C3: Posterior disc is preserved. No central canal stenosis or neural foraminal stenosis is seen. C3-C4: Mild posterior disc space narrowing is noted. Diffuse posterior disc bulge slightly effacing the anterior thecal sac is seen. Moderate bilateral neural foraminal stenosis is seen. No central canal stenosis is believed to be present. C4-C5: Mild posterior disc bulge to the midline is seen. No central canal stenosis is noted. Moderate bilateral neural foraminal stenosis is seen. C5-C6: Anterior disc bulging is noted. Mild diffuse posterior disc bulge is seen. Moderate to severe right-sided neural foraminal stenosis is seen. Mild to moderate left-sided neural foraminal stenosis is seen. C6-C7: Diffuse broad based disc bulge is seen posteriorly. Posterolateral disc herniation is felt to be present to the left side projecting into the origin of the neural foramina causing severe left-sided neural foraminal stenosis. Mild right-sided neural foraminal stenosis is seen. C7-T1: Posterior disc is preserved. No central canal stenosis or neural foraminal stenosis is seen. T1-T2 and T2-T3: Slight posterior disc bulging is seen. No central canal stenosis or neural foraminal stenosis is seen. Slight increased signal is seen within the T1 vertebral body which is felt to be incidental. Cervical cord shows no abnormal signal or mass. Impression: 1. Multiple levels of neural foraminal stenosis with diffuse degenerative change as described above. 2. Broad-based disc bulge at C6-C7 with posterolateral disc herniation to the left side projecting into the left neural foramina causing severe left-sided neural foraminal stenosis. Diagnostic code #3
--- NOTE | 2016-04-25 16:25 | MR ---
MRI thoracic spine Technique: Multiple T1, fat suppressed inversion recovery and T2 weighted sagittal images were obtained the cervical spine as well as T2-weighted axial images. Comparison: Previous thoracic spine plain film study of 04/25/16. Findings: Incidental Schmorl node deformities within the mid and lower thoracic spine are seen. Associated mild disc space narrowing seen at the levels of Schmorl node deformities. Disc bulging is seen within the cervical spine as described on cervical spine MRI. Slight diffuse anterolateral disc bulging is seen to the right side within the mid to lower thoracic spine. No significant posterior disc bulging is seen within the thoracic spine. No central canal stenosis is seen. Neural foramina appear to be patent. Cyst is partially seen within the right kidney measuring 1.4 cm. Thoracic cord shows no abnormal signal or mass. No bone marrow edema is seen within the thoracic spine. Impression: 1. Schmorl node deformities with slight associated disc space narrowing which is developmental. 2. No significant posterior disc bulge is seen. Diagnostic code #2
== END 2016-04-25 17:02 | disposition home or self-care (01) ==
LOC: JD.ED 12:16
DX: M50.20 Other cervical disc displacement, unspecified cervical region (principal); E78.00 Pure hypercholesterolemia, unspecified; G47.30 Sleep apnea, unspecified; F17.210 Nicotine dependence, cigarettes, uncomplicated; Z98.890 Other specified postprocedural states; Z79.899 Other long term (current) drug therapy; Z88.1 Allergy status to other antibiotic agents; Z88.2 Allergy status to sulfonamides
CPT/HCPCS: 72040; 72070; 72141; 72146; 96372; 96374; 99284; J1885; J2250; J7050

== ENCOUNTER 2019-04-07 11:27 | Inpatient (IN) | payer BC ==
[2019-04-07] MEDS ORDERED: Sodium Chloride 0.9% 10 ML Syringe FLUSH PRN ×2 (12:01→12:34)
[2019-04-07] MEDS ORDERED: Sodium Chloride 0.9% 1,000 ML IV SCH (12:15)
--- NOTE | 2019-04-07 12:16 | EDM.PDOC ---
<Rosalinda Maki - Last Filed: 04/07/19 12:23> ED HPI GENERAL MEDICAL PROBLEM - General Chief Complaint: Abdominal Pain Stated Complaint: THROWING UP SINCE MON, LT SIDE PAIN Time Seen by Provider: 04/07/19 11:52 Source of Information: Reports: Patient History Limitations: Reports: No Limitations - History of Present Illness INITIAL COMMENTS - FREE TEXT/NARRATIVE: Patient is a pleasant 53-year-old male who comes to the ED for left lower quadrant pain. He reports that two days ago he experienced 24 hours of vomiting and states he had 300 episodes. During that time period he also reports he had 7 -8 normal bowel movements, not diarrhea. Yesterday, he notes he had about four episodes of vomiting. Yesterday he started developing left lower quadrant pain that he describes as stabbing and can range anywhere from a 5-8/10 in severity. He reports he has not been able to eat in the last 24 hours, but has been able to take sips of fluid. Last bowel movement was yesterday morning. He reports he really has not passed gas in the past 48 hours. Denies noting blood in either stool or vomit. Reports he has felt feverish and had chills over the past two days. Denies chest pain and shortness of breath. Of note, offered patient nausea and pain medications at end of interview to help relieve his pain and increase his comfort while in the ED and he refused at this time. Left Lower Abdomen Pain Score (Numeric/FACES): 5 - Related Data Allergies Allergy/AdvReac Type Severity Reaction Status Date / Time cefaclor [From [facility]] Allergy Anaphylactic Verified 04/07/19 11:43 Shock Sulfa (Sulfonamide Allergy Hives Verified 04/07/19 11:43 Antibiotics) Home Meds: Home Meds Clopidogrel [Plavix] 75 mg PO DAILY 04/07/19 [History] atorvaSTATin Calcium [Lipitor] 20 mg PO DAILY 04/07/19 [History] metFORMIN HCl [Metformin HCl] 1,000 mg PO BID 04/07/19 [History] Past Medical History HEENT History: Reports: Impaired Vision Cardiovascular History: Reports: High Cholesterol, [place] Respiratory History: Reports: Asthma, Sleep Apnea, SOB Other Respiratory History: Pt states all this occured 20 years ago and then he lost 130lbs. Musculoskeletal History: Reports: Amputation Other Musculoskeletal History: left middle finger Neurological History: Reports: Neuropathy, Diabetic Endocrine/Metabolic History: Reports: Diabetes, Type II Hematologic History: Reports: Hemochromatosis Other Hematologic History: Pt states he had a test came back pos. and was put on treatment for 9 months to make sure he never got it. - Infectious Disease History Infectious Disease History: Reports: Chicken Pox, Shingles Other Infectious Disease History: Pt states he thin ks he had shingles once about 15 years ago. - Past Surgical History HEENT Surgical History: Reports: Tonsillectomy Cardiovascular Surgical History: Reports: Coronary Artery Bypass Musculoskeletal Surgical History: Reports: Amputation, Arthroscopic Knee Social & Family History - Family History Family Medical History: Noncontributory Cardiac: Reports: CAD, [place] Other Cardiac Family History: father mother brother and grandparents. Brother with stents. Respiratory: Reports: None Other GI Family History: 3 of Father's brothers dies of stomach CA. Endocrine/Metabolic: Reports: Diabetes, type II Oncologic: Reports: Other (See Below) Other Oncologic Family History: Stomach CA - Tobacco Use Smoking Status *Q: Current Every Day Smoker Years of Tobacco use: 30 Packs/Tins Daily: 0.7 - Caffeine Use Caffeine Use: Reports: Soda - Recreational Drug Use Recreational Drug Use: No ED ROS GENERAL - Review of Systems Review Of Systems: See Below Constitutional: Reports: Fever, Chills, Decreased Appetite. Denies: Weakness, Fatigue Respiratory: Reports: No Symptoms. Denies: Shortness of Breath, Cough Cardiovascular: Reports: No Symptoms. Denies: Chest Pain, Edema, Lightheadedness GI/Abdominal: Reports: Abdominal Pain (left lower quadrant), Nausea, Vomiting. Denies: Bloody Stool, Diarrhea, Flatus (in past 48 hours), Hematemesis : Reports: No Symptoms Musculoskeletal: Reports: No Symptoms. Denies: Back Pain, Muscle Pain Skin: Reports: No Symptoms Neurological: Reports: Headache (intermittent headaches over past two days). Denies: Dizziness, Numbness, Syncope, Tingling, Weakness Psychiatric: Reports: No Symptoms ED EXAM, GI/ABD - Physical Exam Exam: See Below Exam Limited By: No Limitations General Appearance: Alert, WD/WN, No Apparent Distress Head: Atraumatic, Normocephalic Neck: Normal Inspection, Supple, Non-Tender, Full Range of Motion Respiratory/Chest: No Respiratory Distress, Lungs Clear, Normal Breath Sounds, Chest Non-Tender Cardiovascular: Normal Peripheral Pulses, Regular Rate, Rhythm, No Edema, No Murmur GI/Abdominal Exam: Soft, No Organomegaly, No Distention, No Mass, Tender (left upper and lower quadrant, upper > lower), Abnormal Bowel Sounds (decreased ) Back Exam: Normal Inspection, Full Range of Motion Extremities: Normal Inspection, Normal Range of Motion, Non-Tender, Normal Capillary Refill, No Pedal Edema Neurological: Alert, Oriented, Normal Cognition, Normal Gait, No Motor/Sensory Deficits Psychiatric: Normal Affect, Normal Mood Skin Exam: Warm, Dry, Intact, Normal Color, No Rash Course - Vital Signs Last Recorded V/S: Last Vital Signs Temp 96.9 F 04/07/19 11:41 Pulse 102 H 04/07/19 11:41 Resp 16 04/07/19 11:41 BP 133/90 04/07/19 11:41 Pulse Ox 95 04/07/19 16:07 - Orders/Labs/Meds Orders: Active Orders 24 hr Category Date Time Status Patient Status [ADT] Routine ADT 04/07/19 15:52 Active EKG Documentation Completion [RC] ROUTINE Care 04/07/19 16:07 Active Peripheral IV Care [RC] . DIRECTED Care 04/07/19 12:02 Active RT Aerosol Therapy [RC] ASDIRECTED Care 04/07/19 16:07 Active NPO Now [Nothing per Oral Now Diet] [DIET] Diet 04/07/19 Dinner Active UA W/MICROSCOPIC [URIN] Stat Lab 04/07/19 12:14 Ordered Clopidogrel [Plavix] Med 04/08/19 09:00 Active 75 mg PO DAILY Heparin Sodium Med 04/07/19 16:00 Active 5,000 units SUBCUT Q8H Simvastatin [Zocor] Med 04/08/19 21:00 Active 20 mg PO BEDTIME Sodium Chloride 0.9% [Normal Saline] 1,000 ml Med 04/07/19 12:15 Active IV ASDIRECTED Sodium Chloride 0.9% [Saline Flush] Med 04/07/19 12:01 Active 10 ml FLUSH ASDIRECTED PRN Sodium Chloride 0.9% [Saline Flush] Med 04/07/19 12:34 Active 10 ml FLUSH ONETIME PRN ceFAZolin [Ancef] 2 gm Med 04/07/19 16:15 Pending Premix Bag 1 bag IV ONETIME Peripheral IV Insertion Adult [OM.PC] Stat Oth 04/07/19 12:01 Ordered Schedule Procedure [COMM] Routine Oth 04/07/19 15:53 Ordered Medication Orders Clopidogrel Bisulfate (Plavix) 75 mg PO DAILY [facility] Heparin Sodium (Porcine) (Heparin Sodium) 5,000 units SUBCUT Q8H [facility] Sodium Chloride (Normal Saline) 1,000 mls @ 999 mls/hr IV ASDIRECTED TRICIA Last Admin: 04/07/19 12:20 Dose: 999 mls/hr Cefazolin Sodium/Dextrose 2 gm (/ Premix) 50 mls @ 100 mls/hr IV ONETIME ONE Stop: 04/07/19 16:44 Simvastatin (Zocor) 20 mg PO BEDTIME [facility]ICIA Sodium Chloride (Saline Flush) 10 ml FLUSH ASDIRECTED PRN PRN Reason: Keep Vein Open Last Admin: 04/07/19 12:21 Dose: 10 ml Sodium Chloride (Saline Flush) 10 ml FLUSH ONETIME PRN PRN Reason: IV FLUSH Last Admin: 04/07/19 13:39 Dose: 10 ml Labs: Laboratory Tests 04/07/19 04/07/19 04/07/19 Range/Units 12:32 12:32 12:32 WBC 11.61 H (4.23-9.07) K/mm3 RBC 5.26 (4.63-6.08) M/mm3 Hgb 16.5 D (13.7-17.5) gm/dl Hct 49.7 (40.1-51.0) % MCV 94.5 H D (79.0-92.2) fl MCH 31.4 (25.7-32.2) pg MCHC 33.2 (32.2-35.5) g/dl RDW Std Deviation 47.0 H (35.1-43.9) fL Plt Count 266 (163-337) K/mm3 MPV 9.5 (9.4-12.3) fl Neut % (Auto) 74.0 H (34.0-67.9) % Lymph % (Auto) 15.6 L (21.8-53.1) % [place] % (Auto) 8.4 (5.3-12.2) % Eos % (Auto) 1.4 (0.8-7.0) Baso % (Auto) 0.3 (0.1-1.2) % Neut # (Auto) 8.61 H (1.78-5.38) K/mm3 Lymph # (Auto) 1.81 (1.32-3.57) K/mm3 [place] # (Auto) 0.97 H (0.30-0.82) K/mm3 Eos # (Auto) 0.16 (0.04-0.54) K/mm3 Baso # (Auto) 0.03 (0.01-0.08) K/mm3 Sodium 139 (136-145) mEq/L Potassium 3.9 (3.5-5.1) mEq/L Chloride 101 (98-107) mEq/L Carbon Dioxide 30 (21-32) mEq/L Anion Gap 11.9 (5-15) BUN 15 (7-18) mg/dL Creatinine 1.1 (0.7-1.3) mg/dL Est Cr Clr Drug Dosing 91.76 mL/min Estimated GFR (MDRD) > 60 (>60) mL/min BUN/Creatinine Ratio 13.6 L (14-18) Glucose 208 H (74-106) mg/dL Calcium 8.8 (8.5-10.1) mg/dL Total Bilirubin 0.6 (0.2-1.0) mg/dL AST 25 (15-37) U/L ALT 37 (16-63) U/L Alkaline Phosphatase 85 (46-116) U/L C-Reactive Protein 1.8 H* (<1.0) mg/dL Total Protein 7.5 (6.4-8.2) g/dl Albumin 3.6 (3.4-5.0) g/dl Globulin 3.9 gm/dL Albumin/Globulin Ratio 0.9 L (1-2) Lipase 122 (73-393) U/L Meds: Medications Generic Name Dose Route Start Last Admin Trade Name Freq PRN Reason Stop Dose Admin Clopidogrel Bisulfate 75 mg 04/08/19 09:00 Plavix PO DAILY TRICIA Heparin Sodium (Porcine) 5,000 units 04/07/19 16:00 Heparin Sodium SUBCUT Q8H TRICIA Sodium Chloride 1,000 mls @ 999 mls/hr 04/07/19 12:15 04/07/19 12:20 Normal Saline IV 999 mls/hr ASDIRECTED TRICIA Administration Cefazolin Sodium/Dextrose 2 gm 50 mls @ 100 mls/hr 04/07/19 16:15 / Premix IV 04/07/19 16:44 ONETIME ONE Simvastatin 20 mg 04/08/19 21:00 Zocor PO BEDTIME TRICIA Sodium Chloride 10 ml 04/07/19 12:01 04/07/19 12:21 Saline Flush FLUSH 10 ml ASDIRECTED PRN Administration Keep Vein Open Sodium Chloride 10 ml 04/07/19 12:34 04/07/19 13:39 Saline Flush FLUSH 10 ml ONETIME PRN Administration IV FLUSH Discontinued Medications Generic Name Dose Route Start Last Admin Trade Name Freq PRN Reason Stop Dose Admin Albuterol 2.5 mg 04/07/19 16:07 04/07/19 16:23 Proventil Neb Soln NEB 04/07/19 16:08 2.5 mg ONETIME ONE Administration Diatrizoate Meglum/Diatrizoate Sod 120 ml 04/07/19 12:34 04/07/19 13:38 Gastrografin 37% PO 04/07/19 12:35 90 ml ONETIME ONE Administration Famotidine 20 mg 04/07/19 15:52 Pepcid IVPUSH 04/07/19 15:53 ONETIME ONE Famotidine Confirm 04/07/19 16:23 Pepcid Administered 04/07/19 16:24 Dose 20 mg .ROUTE .STK-MED ONE Fentanyl Confirm 04/07/19 15:58 Sublimaze Administered 04/07/19 15:59 Dose 250 mcg .ROUTE .STK-MED ONE Lidocaine HCl Confirm 04/07/19 15:57 Xylocaine-Mpf 1% Administered 04/07/19 15:58 Dose 4 mls @ as directed .ROUTE .STK-MED ONE Iopamidol 100 ml 04/07/19 12:34 04/07/19 13:39 Isovue-300 (61%) IVPUSH 04/07/19 12:35 100 ml ONETIME ONE Administration Iopamidol 50 ml 04/07/19 12:34 04/07/19 13:39 Isovue-300 (61%) IVPUSH 04/07/19 12:35 50 ml ONETIME ONE Administration Midazolam HCl Confirm 04/07/19 15:58 Versed 1 Mg/Ml Administered 04/07/19 15:59 Dose 2 mg .ROUTE .STK-MED ONE Ondansetron HCl Confirm 04/07/19 15:57 Zofran Administered 04/07/19 15:58 Dose 4 mg .ROUTE .STK-MED ONE Propofol Confirm 04/07/19 15:57 Diprivan 20 Ml Administered 04/07/19 15:58 Dose 200 mg .ROUTE .STK-MED ONE Propofol Confirm 04/07/19 16:19 Diprivan 20 Ml Administered 04/07/19 16:20 Dose 200 mg .ROUTE .STK-MED ONE Rocuronium [place] Confirm 04/07/19 15:57 Zemuron Administered 04/07/19 15:58 Dose 50 mg .ROUTE .STK-MED ONE Succinylcholine Chloride Confirm 04/07/19 15:57 Succinylcholine In Ns Pf Administered 04/07/19 15:58 Dose 100 mg .ROUTE .STK-MED ONE Departure - Departure Disposition: DC/Tfer to Critical Access [facility] Clinical Impression: Small bowel obstruction - Discharge Information Sepsis Event Note - Evaluation Sepsis Screening Result: No Definite Risk - Focused Exam Vital Signs: Vital Signs Temp Pulse Resp BP Pulse Ox Pulse Ox 04/07/19 16:07 95 04/07/19 11:41 96.9 F 102 H 16 133/90 99 Date Exam was Performed: 04/07/19 Time Exam was Performed: 12:23 - My Orders Last 24 Hours: My Active Orders 04/07/19 12:01 Sodium Chloride 0.9% [Saline Flush] 10 ml FLUSH ASDIRECTED PRN Peripheral IV Insertion Adult [OM.PC] Stat 04/07/19 12:02 Peripheral IV Care [RC] . DIRECTED 04/07/19 12:14 UA W/MICROSCOPIC [URIN] Stat 04/07/19 12:15 Sodium Chloride 0.9% [Normal Saline] 1,000 ml IV ASDIRECTED 04/07/19 12:34 Sodium Chloride 0.9% [Saline Flush] 10 ml FLUSH ONETIME PRN 04/07/19 15:52 Patient Status [ADT] Routine - Assessment/Plan Last 24 Hours: My Active Orders 04/07/19 12:01 Sodium Chloride 0.9% [Saline Flush] 10 ml FLUSH ASDIRECTED PRN Peripheral IV Insertion Adult [OM.PC] Stat 04/07/19 12:02 Peripheral IV Care [RC] . DIRECTED 04/07/19 12:14 UA W/MICROSCOPIC [URIN] Stat 04/07/19 12:15 Sodium Chloride 0.9% [Normal Saline] 1,000 ml IV ASDIRECTED 04/07/19 12:34 Sodium Chloride 0.9% [Saline Flush] 10 ml FLUSH ONETIME PRN 04/07/19 15:52 Patient Status [ADT] Routine <Terri Alan - Last Filed: 04/07/19 16:27> Course - Re-Assessments/Exams Free Text/Narrative Re-Assessment/Exam: 04/07/19 15:18 WBC is mildly elevated at 11.61. CRP mildly elevated at 1.8. CT of the abdomen shows a dilated loop of small bowel within the mid to left abdomen. This may represent a closed-loop obstruction which is incomplete as contrast is seen distally. With the small bowel at this level is 10.5 cm meters. Radiologist recommends a surgical consult. I did call and speak with Dr. Georges, the on-call general surgeon. He will come see the patient. Discussed this with the patient. He appears very uncomfortable, however continues to refuse any medications for pain or nausea. Advised him that if he changes his mind he should let us know. 04/07/19 15:50 Dr. Georges was here to see patient. Patient will go to surgery for an exploratory laparotomy. Departure - Departure Time of Disposition: 15:50 Condition: Fair Sepsis Event Note - Focused Exam Date Exam was Performed: 04/07/19 Time Exam was Performed: 16:26
[2019-04-07] MEDS ORDERED: Iopamidol 612 MG/ML 50 ML SDV IVPUSH ONE (12:34)
[2019-04-07] MEDS ORDERED: Diatrizoate Meglumine/Diatrizoate Sodium 37% 120 ML Bottle PO ONE (12:34)
[2019-04-07] MEDS ORDERED: Iopamidol 612 MG/ML 100 ML Bottle IVPUSH ONE (12:34)
--- NOTE | 2019-04-07 15:11 | CT ---
CT abdomen and pelvis Technique: Multiple axial sections were obtained from above the dome of the diaphragm inferiorly through the pubic symphysis. Intravenous contrast was utilized. Delayed images were obtained through the bladder. Comparison: No prior CT abdomen or pelvis exam. Findings: There is an unusual dilated loop of bowel within the left upper abdomen. This contains some contrast. Contrast is noted distal to this area. Dilated bowel raises the possibility of a closed loop obstruction which is incompletely occluding. Width of this bowel loop is 10.5 cm and it is felt to be small bowel. Liver contains no focal abnormality. Scarring felt to be present within both lung bases. Spleen appears normal. Kidneys show symmetric contrast enhancement. Several cysts are noted within the right kidney. Adrenal glands show no nodule. Gallbladder contains no calcified gallstones. Pancreas appears within normal limits. Aorta shows no aneurysm. Atherosclerotic change is noted within the aorta. No retroperitoneal adenopathy or mesenteric abnormalities are seen. Diverticuli are seen within the sigmoid colon without inflammatory change diverticulitis. Small fat-containing inguinal hernias are noted. There is mild amount of free fluid within the pelvis. Impression: 1. Dilated loop of small bowel within the mid to left abdomen. This may represent a closed loop obstruction which is incomplete as contrast is seen distally. Width of the bowel at this level is 10.5 cm. Surgical consultation is recommended. 2. Mild amount of free fluid within the pelvis most likely reactive from the small bowel process. 3. Other findings believed to be incidental. Diagnostic code #5 This report was dictated in [place] Standard Time
--- NOTE | 2019-04-07 15:51 | PCM.HP.2 ---
H&P History of Present Illness - General Date of Service: 04/07/19 Admit Problem/Dx: closed loop small bowel obstruction Source of Information: Patient History Limitations: Reports: No Limitations - History of Present Illness Duration of Symptoms: Reports: Day(s): Location: Reports: Abdomen Quality: Reports: Sharp Severity: Severe Associated Symptoms: Reports: Nausea/Vomiting Other HPI/Comments: Mr. Mac is a 53-year-old man who presents to the emergency room with abdominal pain. He noted the abdominal pain began Thursday evening, and it has gradually worsened since onset. He has associated nausea and vomiting, he claims he is vomited over 300 times since his pain began. He has no history of abdominal operations in the past. He has never had a small bowel obstruction. The scan obtained in the emergency room shows a proximal small bowel obstruction , which appears to be a closed-loop obstruction just distal to the ligament of [place], with small bowel dilated to 10 cm in diameter. There is trace free fluid in the pelvis noted as well. Of note, the patient had recent coronary artery bypass graft done 11 months ago and is taking Plavix. Left Lower Abdomen Pain Score (Numeric/FACES): 5 - Related Data Allergies/Adverse Reactions: Allergies Allergy/AdvReac Type Severity Reaction Status Date / Time cefaclor [From Ceclor] Allergy Anaphylactic Verified 04/07/19 11:43 Shock Sulfa (Sulfonamide Allergy Hives Verified 04/07/19 11:43 Antibiotics) Home Medications: Home Meds Clopidogrel [Plavix] 75 mg PO DAILY 04/07/19 [History] atorvaSTATin Calcium [Lipitor] 20 mg PO DAILY 04/07/19 [History] metFORMIN HCl [Metformin HCl] 1,000 mg PO BID 04/07/19 [History] Past Medical History HEENT History: Reports: Impaired Vision Cardiovascular History: Reports: High Cholesterol, [place] Respiratory History: Reports: Asthma, Sleep Apnea, SOB Other Respiratory History: Pt states all this occured 20 years ago and then he lost 130lbs. Musculoskeletal History: Reports: Amputation Other Musculoskeletal History: left middle finger Neurological History: Reports: Neuropathy, Diabetic Endocrine/Metabolic History: Reports: Diabetes, Type II Hematologic History: Reports: Hemochromatosis Other Hematologic History: Pt states he had a test came back pos. and was put on treatment for 9 months to make sure he never got it. - Infectious Disease History Infectious Disease History: Reports: Chicken Pox, Shingles Other Infectious Disease History: Pt states he thin ks he had shingles once about 15 years ago. - Past Surgical History HEENT Surgical History: Reports: Tonsillectomy Cardiovascular Surgical History: Reports: Coronary Artery Bypass Musculoskeletal Surgical History: Reports: Amputation, Arthroscopic Knee Social & Family History - Family History Family Medical History: Noncontributory Cardiac: Reports: CAD, [place] Other Cardiac Family History: father mother brother and grandparents. Brother with stents. Respiratory: Reports: None Other GI Family History: 3 of Father's brothers dies of stomach CA. Endocrine/Metabolic: Reports: Diabetes, type II Oncologic: Reports: Other (See Below) Other Oncologic Family History: Stomach CA - Tobacco Use Smoking Status *Q: Current Every Day Smoker Years of Tobacco use: 30 Packs/Tins Daily: 0.7 - Caffeine Use Caffeine Use: Reports: Soda - Recreational Drug Use Recreational Drug Use: No H&P Review of Systems - Review of Systems: Review Of Systems: See Below General: Reports: No Symptoms HEENT: Reports: No Symptoms Pulmonary: Reports: No Symptoms Cardiovascular: Reports: No Symptoms Gastrointestinal: Reports: Abdominal Pain, Anorexia, Nausea, Vomiting Exam - Exam Exam: See Below - Vital Signs Vital Signs: Last Vital Signs Temp 36.1 C 04/07/19 11:41 Pulse 102 H 04/07/19 11:41 Resp 16 04/07/19 11:41 BP 133/90 04/07/19 11:41 Pulse Ox 99 04/07/19 11:41 Weight: 101.151 kg - Exam General: Alert, Oriented, Cooperative, Mild Distress HEENT: Conjunctiva Clear Neck: Supple Lungs: Clear to Auscultation Cardiovascular: Regular Rate GI/Abdominal Exam: Other (Palpable mass in the left side of the abdomen, exquisitely tender, with rebound and guarding) (Male) Exam: No Hernia Rectal (Males) Exam: Deferred Extremities: Normal Inspection Skin: Warm, Dry Neuro Extensive - Mental Status: Alert, Oriented x3 Neuro Extensive - Motor, Sensory, Reflexes: Normal Gait Psychiatric: Normal Affect, Normal Mood - Patient Data Lab Results Last 24 hrs: Laboratory Results - last 24 hr 04/07/19 04/07/19 04/07/19 Range/Units 12:32 12:32 12:32 WBC 11.61 H (4.23-9.07) K/mm3 RBC 5.26 (4.63-6.08) M/mm3 Hgb 16.5 D (13.7-17.5) gm/dl Hct 49.7 (40.1-51.0) % MCV 94.5 H D (79.0-92.2) fl MCH 31.4 (25.7-32.2) pg MCHC 33.2 (32.2-35.5) g/dl RDW Std Deviation 47.0 H (35.1-43.9) fL Plt Count 266 (163-337) K/mm3 MPV 9.5 (9.4-12.3) fl Neut % (Auto) 74.0 H (34.0-67.9) % Lymph % (Auto) 15.6 L (21.8-53.1) % [place] % (Auto) 8.4 (5.3-12.2) % Eos % (Auto) 1.4 (0.8-7.0) Baso % (Auto) 0.3 (0.1-1.2) % Neut # (Auto) 8.61 H (1.78-5.38) K/mm3 Lymph # (Auto) 1.81 (1.32-3.57) K/mm3 [place] # (Auto) 0.97 H (0.30-0.82) K/mm3 Eos # (Auto) 0.16 (0.04-0.54) K/mm3 Baso # (Auto) 0.03 (0.01-0.08) K/mm3 Sodium 139 (136-145) mEq/L Potassium 3.9 (3.5-5.1) mEq/L Chloride 101 (98-107) mEq/L Carbon Dioxide 30 (21-32) mEq/L Anion Gap 11.9 (5-15) BUN 15 (7-18) mg/dL Creatinine 1.1 (0.7-1.3) mg/dL Est Cr Clr Drug Dosing 91.76 mL/min Estimated GFR (MDRD) > 60 (>60) mL/min BUN/Creatinine Ratio 13.6 L (14-18) Glucose 208 H (74-106) mg/dL Calcium 8.8 (8.5-10.1) mg/dL Total Bilirubin 0.6 (0.2-1.0) mg/dL AST 25 (15-37) U/L ALT 37 (16-63) U/L Alkaline Phosphatase 85 (46-116) U/L C-Reactive Protein 1.8 H* (<1.0) mg/dL Total Protein 7.5 (6.4-8.2) g/dl Albumin 3.6 (3.4-5.0) g/dl Globulin 3.9 gm/dL Albumin/Globulin Ratio 0.9 L (1-2) Lipase 122 (73-393) U/L Result Diagrams: 04/07/19 12:32 04/07/19 12:32 Sepsis Event Note - Evaluation Sepsis Screening Result: No Definite Risk - Focused Exam Vital Signs: Vital Signs Temp Pulse Resp BP Pulse Ox 04/07/19 11:41 36.1 C 102 H 16 133/90 99 Date Exam was Performed: 04/07/19 Time Exam was Performed: 15:46 *Q Meaningful Use (ADM) - VTE Risk Assess *Q Each Risk Factor Represents 1 Point: Age 41 - 59 years, Obesity ( BMI > 25 kg/m2 ) Total Score 1 Point Risk Factors: 2 Each Risk Factor Represents 2 Points: Major surgery greater than 45 minutes Total Score 2 Point Risk Factors: 2 Problem List Initiated/Reviewed/Updated: Yes Orders Last 24hrs: Active Orders 24 hr Category Date Time Status Peripheral IV Care [RC] . DIRECTED Care 04/07/19 12:02 Active UA W/MICROSCOPIC [URIN] Stat Lab 04/07/19 12:14 Ordered Sodium Chloride 0.9% [Normal Saline] 1,000 ml Med 04/07/19 12:15 Active IV ASDIRECTED Sodium Chloride 0.9% [Saline Flush] Med 04/07/19 12:01 Active 10 ml FLUSH ASDIRECTED PRN Sodium Chloride 0.9% [Saline Flush] Med 04/07/19 12:34 Active 10 ml FLUSH ONETIME PRN Peripheral IV Insertion Adult [OM.PC] Stat Oth 04/07/19 12:01 Ordered Medication Orders Sodium Chloride (Normal Saline) 1,000 mls @ 999 mls/hr IV ASDIRECTED TRICIA Last Admin: 04/07/19 12:20 Dose: 999 mls/hr Sodium Chloride (Saline Flush) 10 ml FLUSH ASDIRECTED PRN PRN Reason: Keep Vein Open Last Admin: 04/07/19 12:21 Dose: 10 ml Sodium Chloride (Saline Flush) 10 ml FLUSH ONETIME PRN PRN Reason: IV FLUSH Last Admin: 04/07/19 13:39 Dose: 10 ml Assessment/Plan Comment:: Closed-loop small bowel obstruction, with markedly dilated small bowel concerning for impending infarction. Plan for emergent exploratory laparotomy, possible small bowel resection. The risks and benefits of surgery, including alternatives nonoperative treatment was reviewed with the patient. After discussion of the pathology and recommendation of surgical exploration, the patient has provided informed consent. - Mortality Measure Prognosis:: Good (Guarded prognosis)
[2019-04-07] MEDS ORDERED: Famotidine 20 MG/2 ML SDV IVPUSH ONE ×2 (15:52→21:00)
[2019-04-07] MEDS ORDERED: ceFAZolin 2 GM in Premix Bag 1 BAG IV ONE ×2 (15:54→16:15)
[2019-04-07] MEDS ORDERED: Ondansetron 4 MG/2 ML SDV ONE (15:57)
[2019-04-07] MEDS ORDERED: Propofol 200 MG/20 ML SDV ONE ×2 (15:57→16:19)
[2019-04-07] MEDS ORDERED: Lidocaine 1% 4 ML ONE (15:57)
[2019-04-07] MEDS ORDERED: Succinylcholine/Normal Saline 100 MG/5 ML Syringe ONE (15:57)
[2019-04-07] MEDS ORDERED: Rocuronium 50 MG/5 ML Vial ONE (15:57)
[2019-04-07] MEDS ORDERED: Midazolam 1 MG/ML 2 ML SDV ONE (15:58)
[2019-04-07] MEDS ORDERED: fentaNYL 250 MCG/5 ML SDV ONE (15:58)
[2019-04-07] MEDS ORDERED: Heparin Sodium 5,000 Units/ML Vial SUBCUT SCH (16:00)
[2019-04-07] MEDS ORDERED: Albuterol 0.083% 2.5 MG/3 ML Neb Soln NEB ONE (16:07)
[2019-04-07] MEDS ORDERED: Famotidine 20 MG/2 ML SDV ONE (16:23)
[2019-04-07] MEDS ORDERED: Clindamycin Phosphate 900 MG/6 ML SDV ONE (16:31)
[2019-04-07] MEDS ORDERED: Phenylephrine/Normal Saline 100 MCG/ML 10 ML Syringe ONE ×2 (16:42→17:40)
[2019-04-07] MEDS ORDERED: Sodium Chloride 0.9% 100 ML ONE (16:46)
[2019-04-07] MEDS ORDERED: Bupivacaine 0.5%/EPINEPHrine 1:200,000 50 ML MDV ONE (16:51)
[2019-04-07] MEDS ORDERED: Ketamine 500 mg/10 ML MDV ONE (16:52)
[2019-04-07] MEDS ORDERED: Ondansetron 4 MG/2 ML SDV IVPUSH PRN (17:23)
[2019-04-07] MEDS ORDERED: HYDROmorphone 0.5 MG/0.5 ML Syringe IVPUSH PRN (17:23)
[2019-04-07] MEDS ORDERED: fentaNYL 100 MCG/2 ML SDV IVPUSH PRN (17:23)
--- NOTE | 2019-04-07 17:29 | PCM.PREANE ---
Preanesthetic Assessment - Procedure Proposed Procedure: Exploratory Laparotomy - Anesthesia/Transfusion/Family Hx Anesthesia History: Prior Anesthesia Without Reaction Family History of Anesthesia Reaction: No - Review of Systems General: No Symptoms Pulmonary: Cough (Smoker around a half pack a day. None for 3 days. ) Cardiovascular: No Symptoms (CABG 11 months ago. Follows with cardiology. No cardiac issues since surgery. ) Gastrointestinal: Abdominal Pain, Decreased Appetite, Nausea, Vomiting ( Yesterday many times, none today. ) Neurological: Headache (Mild for the past 2 days on and off. ), Pre-Existing Deficit (Cervical radiculopathy, no pain with full ROM of his neck noted. ) Other: Reports: None, Easy Bleeding, Easy Bruising (On plavix since his heart surgery. ), Diabetes (Type 2, on and off metformin for control, feels the best with his glood glucose 200-250 mg/dl. Currently not taking his metformin. ) - Physical Assessment NPO Status Date: 04/07/19 NPO Status Time: 13:00 Vital Signs: Last Vital Signs Temp 36.8 C 04/07/19 15:25 Pulse 98 04/07/19 15:25 Resp 20 04/07/19 15:25 BP 151/105 H 04/07/19 15:25 Pulse Ox 95 04/07/19 16:07 Height: 1.91 m Weight: 101.151 kg ASA Class: 3 Mental Status: Alert & Oriented x3 Airway Class: Mallampati = 1 Dentition: Reports: Broken Tooth/Teeth, Missing Tooth/Teeth, Caries (Poor dentition, some loose nothing he feels will become dislodged, has to have a couple removed everytime he goes to the dentist. ) Thyro-Mental Finger Breadths: 3 Mouth Opening Finger Breadths: 3 ROM/Head Extension: Full Lungs: Clear to Auscultation, Normal Respiratory Effort Cardiovascular: Regular Rate, Regular Rhythm - Lab Values: Laboratory Last Values WBC 11.61 K/mm3 (4.23-9.07) H 04/07/19 12:32 RBC 5.26 M/mm3 (4.63-6.08) 04/07/19 12:32 Hgb 16.5 gm/dl (13.7-17.5) D 04/07/19 12:32 Hct 49.7 % (40.1-51.0) 04/07/19 12:32 MCV 94.5 fl (79.0-92.2) H D 04/07/19 12:32 MCH 31.4 pg (25.7-32.2) 04/07/19 12:32 MCHC 33.2 g/dl (32.2-35.5) 04/07/19 12:32 RDW Std Deviation 47.0 fL (35.1-43.9) H 04/07/19 12:32 Plt Count 266 K/mm3 (163-337) 04/07/19 12:32 MPV 9.5 fl (9.4-12.3) 04/07/19 12:32 Neut % (Auto) 74.0 % (34.0-67.9) H 04/07/19 12:32 Lymph % (Auto) 15.6 % (21.8-53.1) L 04/07/19 12:32 [place] % (Auto) 8.4 % (5.3-12.2) 04/07/19 12:32 Eos % (Auto) 1.4 (0.8-7.0) 04/07/19 12:32 Baso % (Auto) 0.3 % (0.1-1.2) 04/07/19 12:32 Neut # (Auto) 8.61 K/mm3 (1.78-5.38) H 04/07/19 12:32 Lymph # (Auto) 1.81 K/mm3 (1.32-3.57) 04/07/19 12:32 [place] # (Auto) 0.97 K/mm3 (0.30-0.82) H 04/07/19 12:32 Eos # (Auto) 0.16 K/mm3 (0.04-0.54) 04/07/19 12:32 Baso # (Auto) 0.03 K/mm3 (0.01-0.08) 04/07/19 12:32 Sodium 139 mEq/L (136-145) 04/07/19 12:32 Potassium 3.9 mEq/L (3.5-5.1) 04/07/19 12:32 Chloride 101 mEq/L (98-107) 04/07/19 12:32 Carbon Dioxide 30 mEq/L (21-32) 04/07/19 12:32 Anion Gap 11.9 (5-15) 04/07/19 12:32 BUN 15 mg/dL (7-18) 04/07/19 12:32 Creatinine 1.1 mg/dL (0.7-1.3) 04/07/19 12:32 Est Cr Clr Drug Dosing 91.76 mL/min 04/07/19 12:32 Estimated GFR (MDRD) > 60 mL/min (>60) 04/07/19 12:32 BUN/Creatinine Ratio 13.6 (14-18) L 04/07/19 12:32 Glucose 208 mg/dL (74-106) H 04/07/19 12:32 Calcium 8.8 mg/dL (8.5-10.1) 04/07/19 12:32 Total Bilirubin 0.6 mg/dL (0.2-1.0) 04/07/19 12:32 AST 25 U/L (15-37) 04/07/19 12:32 ALT 37 U/L (16-63) 04/07/19 12:32 Alkaline Phosphatase 85 U/L (46-116) 04/07/19 12:32 C-Reactive Protein 1.8 mg/dL (<1.0) H* 04/07/19 12:32 Total Protein 7.5 g/dl (6.4-8.2) 04/07/19 12:32 Albumin 3.6 g/dl (3.4-5.0) 04/07/19 12:32 Globulin 3.9 gm/dL 04/07/19 12:32 Albumin/Globulin Ratio 0.9 (1-2) L 04/07/19 12:32 Lipase 122 U/L (73-393) 04/07/19 12:32 - Imaging/EKG Impressions: Reviewed by myself and Dr. Fonseca. - Allergies Allergies/Adverse Reactions: Allergies Allergy/AdvReac Type Severity Reaction Status Date / Time cefaclor [From [facility]] Allergy Anaphylactic Verified 04/07/19 11:43 Shock Sulfa (Sulfonamide Allergy Hives Verified 04/07/19 11:43 Antibiotics) - Anesthesia Plan Pre-Op Medication Ordered: Antacids (Famotadine 20 mg IVP. ) - Acknowledgements Anesthesia Type Planned: General Anesthesia Pt an Appropriate Candidate for the Planned Anesthesia: Yes Alternatives and Risks of Anesthesia Discussed w Pt/Guardian: Yes Pt/Guardian Understands and Agrees with Anesthesia Plan: Yes PreAnesthesia Questionnaire HEENT History: Reports: Impaired Vision Cardiovascular History: Reports: High Cholesterol, [place] Respiratory History: Reports: Asthma, Sleep Apnea, SOB Other Respiratory History: Pt states all this occured 20 years ago and then he lost 130lbs. Musculoskeletal History: Reports: Amputation Other Musculoskeletal History: left middle finger Neurological History: Reports: Neuropathy, Diabetic Endocrine/Metabolic History: Reports: Diabetes, Type II Hematologic History: Reports: Hemochromatosis Other Hematologic History: Pt states he had a test came back pos. and was put on treatment for 9 months to make sure he never got it. - Infectious Disease History Infectious Disease History: Reports: Chicken Pox, Shingles Other Infectious Disease History: Pt states he thin ks he had shingles once about 15 years ago. - Past Surgical History HEENT Surgical History: Reports: Tonsillectomy Cardiovascular Surgical History: Reports: Coronary Artery Bypass Musculoskeletal Surgical History: Reports: Amputation, Arthroscopic Knee - SUBSTANCE USE Smoking Status *Q: Current Every Day Smoker Recreational Drug Use History: No - HOME MEDS Home Medications: Home Meds Clopidogrel [Plavix] 75 mg PO DAILY 04/07/19 [History] atorvaSTATin Calcium [Lipitor] 20 mg PO DAILY 04/07/19 [History] metFORMIN HCl [Metformin HCl] 1,000 mg PO BID 04/07/19 [History] - CURRENT (IN HOUSE) MEDS Current Meds: Current Medications Clopidogrel Bisulfate (Plavix) 75 mg PO DAILY [facility] Heparin Sodium (Porcine) (Heparin Sodium) 5,000 units SUBCUT Q8H [facility] Sodium Chloride (Normal Saline) 1,000 mls @ 999 mls/hr IV ASDIRECTED [facility] Last Admin: 04/07/19 12:20 Dose: 999 mls/hr Simvastatin (Zocor) 20 mg PO BEDTIME [facility] Sodium Chloride (Saline Flush) 10 ml FLUSH ASDIRECTED PRN PRN Reason: Keep Vein Open Last Admin: 04/07/19 12:21 Dose: 10 ml Discontinued Medications Albuterol (Proventil Neb Soln) 2.5 mg NEB ONETIME ONE Stop: 04/07/19 16:08 Last Admin: 04/07/19 16:23 Dose: 2.5 mg Bupivacaine HCl/Epinephrine Bitart (Marcaine 0.5%/Epinephrine 1:200,000) Confirm Administered Dose 50 ml .ROUTE .STK-MED ONE Stop: 04/07/19 16:52 Clindamycin Phosphate (Cleocin) Confirm Administered Dose 900 mg .ROUTE .STK- MED ONE Stop: 04/07/19 16:32 Diatrizoate Meglum/Diatrizoate Sod (Gastrografin 37%) 120 ml PO ONETIME ONE Stop: 04/07/19 12:35 Last Admin: 04/07/19 13:38 Dose: 90 ml Famotidine (Pepcid) 20 mg IVPUSH ONETIME ONE Stop: 04/07/19 15:53 Famotidine (Pepcid) Confirm Administered Dose 20 mg .ROUTE .STK-MED ONE Stop: 04/07/19 16:24 Fentanyl (Sublimaze) Confirm Administered Dose 250 mcg .ROUTE .STK-MED ONE Stop: 04/07/19 15:59 Lidocaine HCl (Xylocaine-Mpf 1%) Confirm Administered Dose 4 mls @ as directed .ROUTE .ST-MED ONE Stop: 04/07/19 15:58 Sodium Chloride (Normal Saline) Confirm Administered Dose 100 mls @ as directed .ROUTE .STK-MED ONE Stop: 04/07/19 16:47 Iopamidol (Isovue-300 (61%)) 100 ml IVPUSH ONETIME ONE Stop: 04/07/19 12:35 Last Admin: 04/07/19 13:39 Dose: 100 ml Iopamidol (Isovue-300 (61%)) 50 ml IVPUSH ONETIME ONE Stop: 04/07/19 12:35 Last Admin: 04/07/19 13:39 Dose: 50 ml Ketamine HCl (Ketalar) Confirm Administered Dose 500 mg .ROUTE .STK-MED ONE Stop: 04/07/19 16:53 Midazolam HCl (Versed 1 Mg/Ml) Confirm Administered Dose 2 mg .ROUTE .STK-MED ONE Stop: 04/07/19 15:59 Ondansetron HCl (Zofran) Confirm Administered Dose 4 mg .ROUTE .STK-MED ONE Stop: 04/07/19 15:58 Phenylephrine HCl (Phenylephrine In Ns 100 Mcg/Ml) Confirm Administered Dose 1 mg .ROUTE .STK-MED ONE Stop: 04/07/19 16:43 Propofol (Diprivan 20 Ml) Confirm Administered Dose 200 mg .ROUTE .STK-MED ONE Stop: 04/07/19 15:58 Propofol (Diprivan 20 Ml) Confirm Administered Dose 200 mg .ROUTE .STK-MED ONE Stop: 04/07/19 16:20 Rocuronium [place] (Zemuron) Confirm Administered Dose 50 mg .ROUTE .STK-MED ONE Stop: 04/07/19 15:58 Sodium Chloride (Saline Flush) 10 ml FLUSH ONETIME PRN PRN Reason: IV FLUSH Last Admin: 04/07/19 13:39 Dose: 10 ml Succinylcholine Chloride (Succinylcholine In Ns Pf) Confirm Administered Dose 100 mg .ROUTE .STK-MED ONE Stop: 04/07/19 15:58
[2019-04-07] MEDS ORDERED: metroNIDAZOLE/Normal Saline 100 ML ONE (17:59)
[2019-04-07] MEDS ORDERED: fentaNYL 100 MCG/2 ML SDV ONE (18:06)
[2019-04-07] MEDS ORDERED: Ketorolac 30 MG/ML SDV ONE (18:09)
[2019-04-07] MEDS ORDERED: Neostigmine Methylsulfate 1 MG/ML 5 ML Syringe ONE (18:09)
[2019-04-07] MEDS ORDERED: Morphine 4 MG/ML Syringe IVPUSH PRN (18:35)
--- NOTE | 2019-04-07 18:47 | PCM.POSTAN ---
POST ANESTHESIA ASSESSMENT - MENTAL STATUS Mental Status: Other (Drowsy) - VITAL SIGNS Vital Signs: Last Vital Signs Temp 36.8 C 04/07/19 15:25 Pulse 98 04/07/19 15:25 Resp 20 04/07/19 15:25 BP 151/105 H 04/07/19 15:25 Pulse Ox 95 04/07/19 16:07 1837 127/63 68 17 97% 99.4F - RESPIRATORY Respiratory Status: Respiratory Rate WNL, Airway Patent, O2 Saturation Stable, Supplemental Oxygen - CARDIOVASCULAR CV Status: Pulse Rate WNL, Blood Pressure Stable - GASTROINTESTINAL GI Status: No Symptoms - PAIN Pain Score: 0 - POST OP HYDRATION Hydration Status: Adequate & Stable
--- NOTE | 2019-04-07 18:52 | PCM.PRNOTE ---
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 No perforation. Ileocecectomy performed, with side to side stapled ileocolic anastomosis. Detailed Report: The patient was taken from the emergency room to the operating room for exploratory laparotomy, with diagnosis of closed-loop bowel obstruction. He was placed supine on the table, and general endotracheal anesthesia was initiated. Timeout was performed, and the abdomen was clipped and prepped and draped in usual sterile fashion. 10 cc of 0.5% Marcaine with epinephrine was injected along the midline planned incision. The 10 blade scalpel was used to make a midline incision from the subxiphoid region to just inferior to the umbilicus. Monopolar energy was used to dissect down to the fascia, and the peritoneal cavity was entered safely after raising the peritoneum with clamps and incising it with scissors. The incision was extended, and the Bookwalter retractor was set up to optimize exposure. There was a fixed, dilated loop of bowel palpable in the left upper quadrant. Careful inspection revealed that there was a cecal volvulus, with the cecum markedly dilated and ischemic in appearance. Once this area of concern was isolated, the colon was detorsed. A 55 mm linear KANWAL cutting stapler with blue loads was used to divide the terminal ileum proximately 10 cm proximal to the ileocecal valve and a site of healthy bowel. Another load from the stapler was used to divide the proximal transverse colon just beyond the area of volvulus. The mesentery was taken using the LigaSure. The specimen was passed off the table, and the proximal transverse colon was mobilized. The terminal ileum was then mobilized as well so that the 2 stapled ends came together without tension. The antimesenteric side of the small bowel was aligned with the tinea of the transverse colon, and 2 small enterotomies were made with the monopolar to permit a linear cutting stapler for [id number] anastomosis. This was performed, and the remaining enterotomy was closed with a 30 mm TA stapler. Imbricating Lembert sutures with Vicryl were placed over the TA staple line. The anastomosis felt patent, and a reinforcing suture was placed at the crotch of the staple line. Omentum was then tucked over the anastomosis, and the small bowel was reduced into the abdomen, and the mesentery did not appear twisted. The mesenteric defect from the resection was not closed due to its large size. There was minimal contamination after making enterotomies for the anastomosis. The abdomen was thoroughly irrigated with warm sterile saline solution, and suctioned dry. The Bookwalter retractor was then disassembled, and the midline incision was closed at the level of the fascia with running #1 PDS suture. The skin was closed with skin carmel, and a Mepilex dressing was applied. The patient tolerated the procedure well, was extubated in the operating room and transferred to the recovery room for ongoing care. Bunny Georges MD General Surgery
[2019-04-07] MEDS ORDERED: Acetaminophen 325 MG Tab PO SCH (20:00)
[2019-04-07] MEDS: Acetaminophen 325 MG Tab PO SCH (20:59)
[2019-04-07] MEDS: Heparin Sodium 5,000 Units/ML Vial SUBCUT SCH (21:05)
[2019-04-07] MEDS: Lactated Ringers 1,000 ML IV SCH (21:44)
[2019-04-08] MEDS: Acetaminophen 325 MG Tab PO SCH ×3 (04:13→22:09)
[2019-04-08] MEDS: Heparin Sodium 5,000 Units/ML Vial SUBCUT SCH ×3 (04:14→22:08)
[2019-04-08] MEDS: oxyCODONE 5 MG Tab PO PRN ×4 (04:29→22:18)
[2019-04-08] MEDS: Lactated Ringers 1,000 ML IV SCH (07:36)
--- NOTE | 2019-04-08 07:54 | PCM48HPAN ---
Post Anesthesia Note - EVALUATION WITHIN 48HRS OF ANESTHETIC Vital Signs in Normal Range: Yes Patient Participated in Evaluation: Yes Respiratory Function Stable: Yes Airway Patent: Yes Cardiovascular Function Stable: Yes Hydration Status Stable: Yes Pain Control Satisfactory: Yes Nausea and Vomiting Control Satisfactory: Yes Mental Status Recovered: Yes (Little pain- wondering when he will get ng out- informed will see) Vital Signs: Last Vital Signs Temp 98.8 F 04/08/19 04:00 Pulse 85 04/08/19 04:00 Resp 20 04/08/19 04:00 BP 156/86 H 04/08/19 04:00 Pulse Ox 94 L 04/08/19 04:00
[2019-04-08] MEDS ORDERED: Insulin Lispro 100 Units/ML 3 ML Vial SUBCUT SCH (08:45)
--- NOTE | 2019-04-08 08:54 | PCM.SN ---
- Free Text/Narrative Note: POD 1 s/p ileocecectomy for cecal volvulus, did well overnight. S: complains about NG tube. Pain controlled. O: AF-SBP 150s, HR 80s, SpO2 mid 90% on room air Gen: awake and alert HEENT: NG with minimal clear output Pulm: comfortable on room air Abd: appropriately tender, dressing intact : rivera catheter in place A: Looks good this morning, with good UOP and minimal NG output. P: -no change to analgesia regimen -up to chair, up walking starting today -switch IVF to D5 1/2 NS w KCl @ 75 cc/hr -remove NG, start clears -remove rivera catheter, f/u trial of void -insulin sliding scale -continue home meds -heparin 5000 u SC q8h for DVT ppx, SCDs
[2019-04-08] MEDS: Clopidogrel 75 MG Tab PO SCH (08:57)
[2019-04-08] MEDS ORDERED: Morphine 2 MG/ML Syringe IVPUSH PRN (09:04)
[2019-04-08] MEDS: D5 1/2 NS w/ 20 mEq/L KCl 1,000 ML IV SCH ×2 (10:33→22:18)
[2019-04-08] MEDS: Insulin Lispro 100 Units/ML 3 ML Vial SUBCUT SCH ×3 (12:16→22:22)
[2019-04-08] MEDS: Simvastatin 20 MG Tab PO SCH (22:10)
[2019-04-09] MEDS ORDERED: Ondansetron 4 MG/2 ML SDV IVPUSH PRN (04:40)
[2019-04-09] MEDS: Heparin Sodium 5,000 Units/ML Vial SUBCUT SCH ×3 (04:56→20:36)
[2019-04-09] MEDS: Acetaminophen 325 MG Tab PO SCH ×3 (04:56→20:36)
[2019-04-09] MEDS: Clopidogrel 75 MG Tab PO SCH (08:06)
[2019-04-09] MEDS: Insulin Lispro 100 Units/ML 3 ML Vial SUBCUT SCH ×4 (08:08→21:10)
[2019-04-09] MEDS ORDERED: Promethazine 12.5 MG in Sodium Chloride 0.9% 50 ML IV PRN (09:14)
--- NOTE | 2019-04-09 09:20 | PCM.SN ---
- Free Text/Narrative Note: POD 2 s/p ileocecectomy for cecal volvulus S: some nausea and belching overnight. No emesis. Pain controlled, ambulating, voiding. No flatus. O: AF-VSS Awake and alert, no distress Comfortable on room air RRR Abd soft, not distended, appropriately tender, midline incision looks good A: Recovering well after ileocecectomy P: -tylenol sched, oxy prn pain; d/c morphine -jennifer -advance to regular diet -zofran, phenergan prn nausea -OOB walking TID -heparin SC, SCDs DVT ppx -anticipate discharge within a few days, once bowel function returns
[2019-04-09] MEDS: oxyCODONE 5 MG Tab PO PRN ×2 (14:48→22:55)
[2019-04-09] MEDS: Simvastatin 20 MG Tab PO SCH (20:37)
[2019-04-10] MEDS: Acetaminophen 325 MG Tab PO SCH ×3 (05:02→20:30)
[2019-04-10] MEDS: Heparin Sodium 5,000 Units/ML Vial SUBCUT SCH ×3 (05:02→20:30)
[2019-04-10] MEDS: Insulin Lispro 100 Units/ML 3 ML Vial SUBCUT SCH ×4 (07:02→21:01)
[2019-04-10] MEDS: Clopidogrel 75 MG Tab PO SCH (08:01)
--- NOTE | 2019-04-10 13:20 | PCM.SN ---
- Free Text/Narrative Note: POD 3 s/p ileocecectomy for cecal volvulus S: no complaints. Reports some belching and some flatus. No nausea, tolerating regular diet. Taking tylenol only for pain. O: AF-VSS No distress comfortable on room air RRR Abd soft, minimally tender, no distention A: Recovering nicely from his operation, bowel function returning. P: Add miralax, monitor overnight. Anticipate discharge to home tomorrow if continuing to do well.
[2019-04-10] MEDS: Docusate Sodium 100 MG Cap PO SCH (14:10)
[2019-04-10] MEDS: Polyethylene Glycol 3350 Powder 17 GM Packet PO SCH ×2 (14:11→20:30)
[2019-04-10] MEDS: Simvastatin 20 MG Tab PO SCH (20:31)
[2019-04-11] MEDS: Heparin Sodium 5,000 Units/ML Vial SUBCUT SCH ×2 (06:17→12:59)
[2019-04-11] MEDS: Acetaminophen 325 MG Tab PO SCH ×2 (06:17→13:00)
[2019-04-11] MEDS: Insulin Lispro 100 Units/ML 3 ML Vial SUBCUT SCH ×2 (06:18→11:33)
--- NOTE | 2019-04-11 08:37 | PCM.SN ---
- Free Text/Narrative Note: POD 4 s/p ileocecectomy for cecal volvulus S: nausea, bloating and belching last night, better now, but not really passing flatus O: AF-VSS awake and alert, no distress comfortable on room air RRR abd slightly more distended and tympanitic, soft, appropriately tender, midline incision without cellulitis or drainage A: Awaiting resolution of post-operative ileus, otherwise patient appears to be doing well P: discontinue miralax slow with PO intake, await return of flatus/BM
[2019-04-11] MEDS: Clopidogrel 75 MG Tab PO SCH (08:50)
[2019-04-11] MEDS: Docusate Sodium 100 MG Cap PO SCH (08:50)
[2019-04-11 14:26] VITALS: BP 156/83; PULSE 88
--- NOTE | 2019-04-11 18:41 | PCM.DCSUM1 ---
Discharge Summary - Hospital Course Free Text/Narrative:: Presented to emergency department on 04/07 with a few days of severe abdominal pain and CT scan showing closed loop bowel obstruction. He was stable at the time of evaluation, and taken promptly to the OR for laparotomy. Cecal volvulus was found in the OR, with extremely distended and ischemic cecum. Ileocecectomy with stapled side to side ileocolic anastomosis was completed. The patient had an uneventful post-operative course, kept in the hospital until the evening of POD 4 when return of bowel function was confirmed. Diagnosis: Stroke: No - Discharge Data Discharge Date: 04/11/19 Discharge Disposition: Home, Self-Care 01 Condition: Good - Referral to Home Health Primary Care Physician: Nellie Colby PA-C - Patient Summary/Data Operative Procedure(s) Performed: laparotomy, ileocecectomy Complications: none Recommended Follow-up Testing/Procedures: Plan for follow up in Surgery Clinic 04/20 for post-op eval and staple removal - Patient Instructions Diet: Regular Diet as Tolerated Activity: As Tolerated, No Lifting Over 10 Pounds Showering/Bathing: May Shower Wound/Incision Care: Keep Operative Site/Wound Site Clean and Dry Notify Provider of: Fever, Increased Pain, Swelling and Redness, Drainage, Nausea and/or Vomiting - Discharge Plan *PRESCRIPTION DRUG MONITORING PROGRAM REVIEWED*: Not Applicable *COPY OF PRESCRIPTION DRUG MONITORING REPORT IN PATIENT LOREN: Not Applicable Prescriptions/Med Rec: oxyCODONE 5 mg PO Q4H PRN #10 tab PRN Reason: Pain Home Medications: Home Meds Clopidogrel [Plavix] 75 mg PO DAILY 04/07/19 [History] atorvaSTATin Calcium [Lipitor] 20 mg PO DAILY 04/07/19 [History] metFORMIN HCl [Metformin HCl] 1,000 mg PO BID 04/07/19 [History] oxyCODONE 5 mg PO Q4H PRN #10 tab 04/11/19 [Rx] Oxygen Therapy Mode: Room Air Patient Handouts: Steps to Quit Smoking Forms: ED Department Discharge Referrals: Nellie Colby PA-C [Primary Care Provider] - - Discharge Summary/Plan Comment DC Time >30 min.: No - Patient Data Vitals - Most Recent: Last Vital Signs Temp 36.7 C 04/11/19 14:23 Pulse 88 04/11/19 14:23 Resp 20 04/11/19 14:23 BP 156/83 H 04/11/19 14:23 Pulse Ox 97 04/11/19 14:23 Weight - Most Recent: 102.149 kg I&O - Last 24 hours: Intake & Output 04/11/19 04/11/19 04/11/19 06:59 14:59 22:59 Intake Total 800 960 Balance 800 960 Lab Results - Last 24 hrs: Laboratory Results - last 24 hr 04/10/19 04/11/19 04/11/19 Range/Units 20:36 06:15 11:12 POC Glucose 125 H 112 H 144 H (70-105) mg/dL Med Orders - Current: Current Medications Acetaminophen (Tylenol) 975 mg PO Q8H [facility] Last Admin: 04/11/19 13:00 Dose: 975 mg Clopidogrel Bisulfate (Plavix) 75 mg PO DAILY [facility] Last Admin: 04/11/19 08:50 Dose: 75 mg Docusate Sodium (Colace) 100 mg PO DAILY [facility] Last Admin: 04/11/19 08:50 Dose: 100 mg Heparin Sodium (Porcine) (Heparin Sodium) 5,000 units SUBCUT Q8H [facility] Last Admin: 04/11/19 12:59 Dose: 5,000 units Promethazine HCl 12.5 mg/ (Sodium Chloride) 50.5 mls @ 100 mls/hr IV Q6H PRN PRN Reason: Nausea Ondansetron HCl (Zofran) 4 mg IVPUSH Q4H PRN PRN Reason: Nausea/Vomiting Last Admin: 04/09/19 04:57 Dose: 4 mg Oxycodone HCl (Oxycodone) 5 mg PO Q4H PRN PRN Reason: Pain (moderate 4-6) Last Admin: 04/09/19 22:55 Dose: 5 mg Simvastatin (Zocor) 20 mg PO BEDTIME [facility] Last Admin: 04/10/19 20:31 Dose: 20 mg Sodium Chloride (Saline Flush) 10 ml FLUSH ASDIRECTED PRN PRN Reason: Keep Vein Open Last Admin: 04/07/19 12:21 Dose: 10 ml Discontinued Medications Acetaminophen (Tylenol) 975 mg PO Q8H [facility] Albuterol (Proventil Neb Soln) 2.5 mg NEB ONETIME ONE Stop: 04/07/19 16:08 Last Admin: 04/07/19 16:23 Dose: 2.5 mg Bupivacaine HCl/Epinephrine Bitart (Marcaine 0.5%/Epinephrine 1:200,000) Confirm Administered Dose 50 ml .ROUTE .STK-MED ONE Stop: 04/07/19 16:52 Last Admin: 04/07/19 16:59 Dose: 10 ml Clindamycin Phosphate (Cleocin) Confirm Administered Dose 900 mg .ROUTE .STK- MED ONE Stop: 04/07/19 16:32 Last Admin: 04/07/19 16:55 Dose: 900 mg Diatrizoate Meglum/Diatrizoate Sod (Gastrografin 37%) 120 ml PO ONETIME ONE Stop: 04/07/19 12:35 Last Admin: 04/07/19 13:38 Dose: 90 ml Famotidine (Pepcid) 20 mg IVPUSH ONETIME ONE Stop: 04/07/19 15:53 Last Admin: 04/07/19 20:49 Dose: Not Given Famotidine (Pepcid) Confirm Administered Dose 20 mg .ROUTE .STK-MED ONE Stop: 04/07/19 16:24 Famotidine (Pepcid) 20 mg IVPUSH ONETIME ONE Stop: 04/07/19 21:01 Last Admin: 04/07/19 21:02 Dose: 20 mg Fentanyl (Sublimaze) Confirm Administered Dose 250 mcg .ROUTE .STK-MED ONE Stop: 04/07/19 15:59 Fentanyl (Sublimaze) 50 mcg IVPUSH Q5M PRN PRN Reason: Pain Stop: 04/07/19 19:30 Last Admin: 04/07/19 19:23 Dose: 50 mcg Fentanyl (Sublimaze) Confirm Administered Dose 100 mcg .ROUTE .STK-MED ONE Stop: 04/07/19 18:07 Glycopyrrolate () Confirm Administered Dose 1 mg .ROUTE .STK-MED ONE Stop: 04/07/19 18:10 Heparin Sodium (Porcine) (Heparin Sodium) 5,000 units SUBCUT Q8H [facility] Last Admin: 04/07/19 20:50 Dose: Not Given Hydromorphone HCl (Dilaudid) 0.5 mg IVPUSH Q10M PRN PRN Reason: Pain (severe 7-10) Stop: 04/07/19 19:30 Sodium Chloride (Normal Saline) 1,000 mls @ 999 mls/hr IV ASDIRECTED [facility] Last Admin: 04/07/19 12:20 Dose: 999 mls/hr Lidocaine HCl (Xylocaine-Mpf 1%) Confirm Administered Dose 4 mls @ as directed .ROUTE .STK-MED ONE Stop: 04/07/19 15:58 Sodium Chloride (Normal Saline) Confirm Administered Dose 100 mls @ as directed .ROUTE .STK-MED ONE Stop: 04/07/19 16:47 Metronidazole (Flagyl 500 Mg In Ns 100 Ml) Confirm Administered Dose 100 mls @ as directed .ROUTE .STK-MED ONE Stop: 04/07/19 18:00 Lactated Ringer's (Ringers, Lactated) 1,000 mls @ 100 mls/hr IV ASDIRECTED [facility] Last Admin: 04/08/19 07:36 Dose: 100 mls/hr Potassium Chloride/Dextrose/Sod Cl (D5 1/2 Ns W/ 20 Meq/L Kcl) 1,000 mls @ 75 mls/hr IV ASDIRECTED [facility] Last Admin: 04/08/19 22:18 Dose: 75 mls/hr Insulin Human Lispro (Humalog) 0 unit SUBCUT WITHMEALSANDBED [facility]; Protocol Insulin Human Lispro (Humalog) 0 unit SUBCUT QIDACANDBED [facility]; Protocol Last Admin: 04/11/19 11:33 Dose: Not Given Iopamidol (Isovue-300 (61%)) 100 ml IVPUSH ONETIME ONE Stop: 04/07/19 12:35 Last Admin: 04/07/19 13:39 Dose: 100 ml Iopamidol (Isovue-300 (61%)) 50 ml IVPUSH ONETIME ONE Stop: 04/07/19 12:35 Last Admin: 04/07/19 13:39 Dose: 50 ml Ketamine HCl (Ketalar) Confirm Administered Dose 500 mg .ROUTE .STK-MED ONE Stop: 04/07/19 16:53 Ketorolac Tromethamine (Toradol) Confirm Administered Dose 30 mg .ROUTE .STK- MED ONE Stop: 04/07/19 18:10 Midazolam HCl (Versed 1 Mg/Ml) Confirm Administered Dose 2 mg .ROUTE .STK-MED ONE Stop: 04/07/19 15:59 Morphine Sulfate (Morphine) 1 mg IVPUSH Q2H PRN PRN Reason: Pain (severe 7-10) Morphine Sulfate (Morphine) 1 mg IVPUSH Q2H PRN PRN Reason: Pain (severe 7-10) Neostigmine Methylsulfate (Neostigmine) 5 mg .ROUTE .STK-MED ONE Stop: 04/07/19 18:10 Ondansetron HCl (Zofran) Confirm Administered Dose 4 mg .ROUTE .STK-MED ONE Stop: 04/07/19 15:58 Ondansetron HCl (Zofran) 4 mg IVPUSH ONETIME PRN PRN Reason: Nausea/Vomiting Stop: 04/07/19 19:30 Phenylephrine HCl (Phenylephrine In Ns 100 Mcg/Ml) Confirm Administered Dose 1 mg .ROUTE .STK-MED ONE Stop: 04/07/19 16:43 Phenylephrine HCl (Phenylephrine In Ns 100 Mcg/Ml) Confirm Administered Dose 1 mg .ROUTE .STK-MED ONE Stop: 04/07/19 17:41 Polyethylene Glycol (Miralax) 17 gm PO BID [facility] Last Admin: 04/10/19 20:30 Dose: 17 gm Propofol (Diprivan 20 Ml) Confirm Administered Dose 200 mg .ROUTE .STK-MED ONE Stop: 04/07/19 15:58 Propofol (Diprivan 20 Ml) Confirm Administered Dose 200 mg .ROUTE .STK-MED ONE Stop: 04/07/19 16:20 Rocuronium [place] (Zemuron) Confirm Administered Dose 50 mg .ROUTE .STK-MED ONE Stop: 04/07/19 15:58 Sodium Chloride (Saline Flush) 10 ml FLUSH ONETIME PRN PRN Reason: IV FLUSH Last Admin: 04/07/19 13:39 Dose: 10 ml Succinylcholine Chloride (Succinylcholine In Ns Pf) Confirm Administered Dose 100 mg .ROUTE .STK-MED ONE Stop: 04/07/19 15:58
== END 2019-04-11 19:42 | disposition home or self-care (01) | DRG 230 ==
LOC: JD.ED 11:27 → JD.SDS 15:54 → JD.MS 18:35
PROVIDERS: ADMIT Surgery; ATTEND Surgery
PROC: 0DTF0ZZ Resection of Right Large Intestine, Open Approach (ICD-10-PCS; principal; 2019-04-07)
PROC: 0DBB0ZZ Excision of Ileum, Open Approach (ICD-10-PCS; 2019-04-07)
DX: K56.2 Volvulus (principal); K56.7 Ileus, unspecified; E78.00 Pure hypercholesterolemia, unspecified; E11.42 Type 2 diabetes mellitus with diabetic polyneuropathy; F17.200 Nicotine dependence, unspecified, uncomplicated; I25.2 Old myocardial infarction; Z79.84 Long term (current) use of oral hypoglycemic drugs; Z88.1 Allergy status to other antibiotic agents; Z88.2 Allergy status to sulfonamides
CPT/HCPCS: 00840; 36415; 74177; 74177-26; 80048; 80053; 81001; 82962; 83690; 85025; 86140; 94760; 96360; 99284; 99285-25; A9270-GY; J0330; J1644; J1815-GY; J1885; J2001; J2250; J2370; J2405; J2704; J2710; J3010; J3480; J3490; J7030; J7050; J7120; Q9963; Q9967

== ENCOUNTER 2019-10-25 07:05 | Inpatient (IN) | payer BC ==
[~2019-10-25 07:05] MED LIST: Dexmedetomidine 200 MCG/2 ML SDV ONE; Lidocaine 1%/Sod Bicarbonate in NS 8.4% 1 ML Syringe IDERM PRN; Propofol 200 MG/20 ML SDV ONE; Sodium Chloride 0.9% 10 ML Syringe FLUSH PRN
[2019-10-25] MEDS ORDERED: Midazolam 1 MG/ML 2 ML SDV ONE (07:06)
[2019-10-25] MEDS ORDERED: fentaNYL 100 MCG/2 ML SDV ONE (07:06)
[2019-10-25] MEDS ORDERED: Bupivacaine 0.5% 10 ML SDV ONE (07:11)
[2019-10-25] MEDS ORDERED: Bupivacaine 0.5%/EPINEPHrine 1:200,000 50 ML MDV ONE (07:16)
[2019-10-25] MEDS: Lactated Ringers 1,000 ML IV SCH ×2 (07:20→18:02)
--- NOTE | 2019-10-25 07:44 | PCM.PREANE ---
Preanesthetic Assessment - Procedure Proposed Procedure: Open incisional hernia repair - Anesthesia/Transfusion/Family Hx Anesthesia History: Prior Anesthesia Without Reaction Transfusion History: No Prior Transfusion(s) - Review of Systems General: No Symptoms Pulmonary: No Symptoms Cardiovascular: No Symptoms (CABG 2018, follows with cardiology, no issues since surgery ) Gastrointestinal: No Symptoms Neurological: Pre-Existing Deficit (cervical radiculopathy, occasional hand numbness, not today) Other: Reports: Diabetes - Physical Assessment Vital Signs: Last Vital Signs Temp 96.9 F 10/25/19 07:10 Pulse 65 10/25/19 07:10 Resp 16 10/25/19 07:10 BP 125/63 10/25/19 07:10 Pulse Ox 98 10/25/19 07:10 ASA Class: 3 Mental Status: Alert & Oriented x3 Airway Class: Mallampati = 2 Dentition: Reports: Normal Dentition, Broken Tooth/Teeth, Missing Tooth/Teeth, Caries (poor dentition) Thyro-Mental Finger Breadths: 3 Mouth Opening Finger Breadths: 3 ROM/Head Extension: Full Lungs: Clear to Auscultation, Normal Respiratory Effort Cardiovascular: Regular Rate, Regular Rhythm - Lab Values: Laboratory Last Values POC Glucose 122 mg/dL (70-105) H 10/25/19 07:24 - Allergies Allergies/Adverse Reactions: Allergies Allergy/AdvReac Type Severity Reaction Status Date / Time cefaclor [From Ceclor] Allergy Anaphylactic Verified 04/07/19 20:18 Shock Sulfa (Sulfonamide Allergy Hives Verified 04/07/19 20:18 Antibiotics) - Acknowledgements Anesthesia Type Planned: Spinal, Regional Block (TAP, optional for postoperative pain) Pt an Appropriate Candidate for the Planned Anesthesia: Yes Alternatives and Risks of Anesthesia Discussed w Pt/Guardian: Yes Pt/Guardian Understands and Agrees with Anesthesia Plan: Yes PreAnesthesia Questionnaire HEENT History: Reports: Impaired Vision, Sinusitis, Other (See Below) Other HEENT History: wears glasses, retinopathy Cardiovascular History: Reports: Bypass, CAD, High Cholesterol, [place], Other (See Below) Other Cardiovascular History: tripple bypass Respiratory History: Reports: Asthma, Sleep Apnea, SOB Other Respiratory History: Pt states all this occured 20 years ago and then he lost 130lbs. 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 and was put on treatment for 9 months to make sure he never got it. Immunologic History: Reports: None Oncologic (Cancer) History: Reports: Non-Hodgkin's Lymphoma Other Oncologic History: 30 years ago had non-hodgkins lumphoma treated with radiation and chemo Other Dermatologic History: ulcer 2nd right toe, right foot cellulitis - Infectious Disease History Infectious Disease History: Reports: None Other Infectious Disease History: Pt states he thin ks he had shingles once about 15 years ago. - Past Surgical History HEENT Surgical History: Reports: Tonsillectomy Other HEENT Surgeries/Procedures: Tonsilectomy x's2. Cardiovascular Surgical History: Reports: Coronary Artery Bypass Other Cardiovascular Surgeries/Procedures: Pt states he did not have a stent placed but had a catheter go in through his groin and seperate 2 things 20 years ago. Respiratory Surgical History: Reports: None GI Surgical History: Reports: Colon (colectomy 03/2019) Female Surgical History: Reports: None Male Surgical History: Reports: None Endocrine Surgical History: Reports: None Neurological Surgical History: Reports: None Musculoskeletal Surgical History: Reports: Amputation, Arthroscopic Knee, Knee Replacement, Other (See Below) Other Musculoskeletal Surgeries/Procedures:: partial right knee Oncologic Surgical History: Reports: None - SUBSTANCE USE Smoking Status *Q: Current Every Day Smoker Recreational Drug Use History: No - HOME MEDS Home Medications: Home Meds Clopidogrel [Plavix] 75 mg PO DAILY 04/07/19 [History] atorvaSTATin Calcium [Lipitor] 20 mg PO DAILY 04/07/19 [History] metFORMIN HCl [Metformin HCl] 1,000 mg PO BID 04/07/19 [History] oxyCODONE 5 mg PO Q4H PRN #10 tab 04/11/19 [Rx] - CURRENT (IN HOUSE) MEDS Current Meds: Current Medications Lactated Ringer's (Ringers, Lactated) 1,000 mls @ 125 mls/hr IV ASDIRECTED TRICIA Stop: 10/25/19 23:00 Lidocaine/Sodium Bicarbonate (Buffered Lidocaine 1% In Ns 8.4%) 0.25 ml IDERM ONETIME PRN PRN Reason: Prior to IV Start Stop: 10/25/19 18:00 Sodium Chloride (Saline Flush) 10 ml FLUSH ASDIRECTED PRN PRN Reason: Keep Vein Open Stop: 10/25/19 18:00 Discontinued Medications Bupivacaine HCl (Sensorcaine-Mpf 0.5%) Confirm Administered Dose 10 ml .ROUTE .STK-MED ONE Stop: 10/25/19 07:12 Bupivacaine HCl/Epinephrine Bitart (Marcaine 0.5%/Epinephrine 1:200,000) Confirm Administered Dose 50 ml .ROUTE .STK-MED ONE Stop: 10/25/19 07:17 Dexmedetomidine HCl (Precedex) Confirm Administered Dose 200 mcg .ROUTE .STK-MED ONE Stop: 10/25/19 06:54 Fentanyl (Sublimaze) Confirm Administered Dose 100 mcg .ROUTE .STK-MED ONE Stop: 10/25/19 07:07 Midazolam HCl (Versed 1 Mg/Ml) Confirm Administered Dose 4 mg .ROUTE .STK-MED ONE Stop: 10/25/19 07:07 Propofol (Diprivan 20 Ml) Confirm Administered Dose 400 mg .ROUTE .STK-MED ONE Stop: 10/25/19 07:06
[2019-10-25] MEDS ORDERED: D5W IV ONE ×2 (08:00)
[2019-10-25] MEDS ORDERED: SODIUM CHLORIDE 0.9% IV ONE ×2 (08:00)
[2019-10-25] MEDS ORDERED: CLINDAMYCIN PHOSPHATE IV ONE ×2 (08:00)
[2019-10-25] MEDS ORDERED: Morphine PF 10 MG/10 ML SDV ONE (08:03)
[2019-10-25] MEDS ORDERED: Lactated Ringers 1,000 ML ONE ×2 (08:41→10:17)
[2019-10-25] MEDS ORDERED: Succinylcholine/Sod PF 100 MG/5 ML SYRINGE IV ONE ×2 (09:06)
[2019-10-25] MEDS ORDERED: Rocuronium 50 MG/5 ML Vial ONE (09:15)
[2019-10-25] MEDS ORDERED: Ondansetron 4 MG/2 ML SDV ONE (09:28)
[2019-10-25] MEDS ORDERED: Ondansetron 4 MG/2 ML SDV IVPUSH PRN ×2 (10:08→13:31)
[2019-10-25] MEDS ORDERED: fentaNYL 100 MCG/2 ML SDV IVPUSH PRN (10:08)
[2019-10-25] MEDS ORDERED: diphenhydrAMINE 50 MG/ML SDV IVPUSH PRN (10:08)
--- NOTE | 2019-10-25 11:45 | PCM.POSTAN ---
POST ANESTHESIA ASSESSMENT - MENTAL STATUS Mental Status: Somnolent - VITAL SIGNS Vital Signs: Last Vital Signs Temp 97.5 F 10/25/19 11:30 Pulse 65 10/25/19 07:10 Resp 8 L 10/25/19 11:30 BP 103/47 L 10/25/19 11:30 Pulse Ox 93 L 10/25/19 11:30 - RESPIRATORY Respiratory Status: Respiratory Rate WNL, Airway Patent, O2 Saturation Stable, Supplemental Oxygen - CARDIOVASCULAR CV Status: Pulse Rate WNL, Blood Pressure Stable - GASTROINTESTINAL GI Status: No Symptoms - PAIN Pain Score: 0 (post SAB) - POST OP HYDRATION Hydration Status: Adequate & Stable
[2019-10-25] MEDS ORDERED: oxyCODONE 5 MG Tab PO PRN (13:14)
[2019-10-25] MEDS ORDERED: Morphine PF 30 MG/30 ML PCA Vial IV SCH ×2 (13:15→20:00)
[2019-10-25] MEDS ORDERED: Ondansetron 4 MG in Sodium Chloride 0.9% 50 ML IV PRN (13:18)
--- NOTE | 2019-10-25 14:03 | PCM.PRNOTE ---
- Free Text/Narrative Note: Date: 10/25/2019 Operation: open incisional hernia repair with retrorectus mesh placement. Surgeon: Bunny Georges MD Findings: large incisional hernia with fascial defect measuring about 12 x 10 cm. 15 x 20 cm piece of Progrip mesh placed in retrorectus space. GENIA drain left in subcutaneous space. Detailed Report: The patient was taken to the operating room and placed in supine position. Pre- operatively, a spinal anesthetic had been administered, but during the case the patient required muscle paralysis and general endotracheal anesthesia was provided. The abdominal hair was clipped and the abdomen prepped and draped in usual sterile fashion after placement of an indwelling urinary catheter. Time out was performed. A total of 60 cc 0.5% marcaine was used for local and regional anesthesia during the case. The old midline scar was excised sharply. The underlying tissue was divided along the midline until the hernia sac was encountered. The tissue was grasped and elevated, and the peritoneal cavity was entered sharply with scissors. Minimal lysis of filmy adhesions ensued, freeing viscera from the abdominal wall. The rectus muscles were quite displaced laterally. The medial border of the rectus sheath on the left was identified, and an incision was made through the sheath, exposing rectus muscle fibers. This incision was extended along the medial border of the muscle belly superiorly and inferiorly to the linea alba beyond the extent of the hernia defect. The muscle was then retracted laterally and anteriorly while careful separation from the posterior sheath was performed. This dissection was carried out laterally to the neurovascular bundles. Next, the right side was dissected in identical fashion. The posterior layer was then closed at midline without significant tension with running 0 PDS suture. Next, a piece of 15 x 20 cm Progrip permanent mesh was laid in the retrorectus plane, and secured to the posterior tissue with PDS suture superiorly, laterally and inferiorly. Next, the linea alba was recreated by closing the anterior rectus fascia with running PDS suture. At this point, there was a fair amount of hernia sac lining the subcutaneous tissue. Rather than excise all of this tissue, A 7 F GENIA drain was left in the space and brought out through the skin at the lower left side. This was secured with nylon suture at the skin. The midline incision was closed at the level of the skin with skin carmel and dressed with ABD pad and tape. The patient tolerated the procedure well and rivera catheter was removed at the conclusion.
[2019-10-25] MEDS: Heparin Sodium 5,000 Units/ML Vial SUBCUT SCH ×2 (14:33→20:51)
[2019-10-25] MEDS: Acetaminophen 325 MG Tab PO SCH ×2 (14:34→20:51)
[2019-10-25] MEDS: Docusate Sodium 100 MG Cap PO SCH (20:50)
[2019-10-26] MEDS: Lactated Ringers 1,000 ML IV SCH ×2 (00:35→06:59)
[2019-10-26] MEDS: Heparin Sodium 5,000 Units/ML Vial SUBCUT SCH ×2 (05:19→15:02)
[2019-10-26] MEDS: Acetaminophen 325 MG Tab PO SCH ×2 (05:19→15:02)
--- NOTE | 2019-10-26 08:07 | PCM48HPAN ---
Post Anesthesia Note - EVALUATION WITHIN 48HRS OF ANESTHETIC Vital Signs in Normal Range: Yes Patient Participated in Evaluation: Yes Respiratory Function Stable: Yes Airway Patent: Yes Cardiovascular Function Stable: Yes Hydration Status Stable: Yes Pain Control Satisfactory: Yes Nausea and Vomiting Control Satisfactory: Yes Mental Status Recovered: Yes Vital Signs: Last Vital Signs Temp 99.0 F 10/26/19 03:12 Pulse 53 L 10/26/19 03:12 Resp 16 10/26/19 07:00 BP 133/67 10/26/19 03:12 Pulse Ox 100 10/26/19 07:45 - COMMENTS/OBSERVATIONS Free Text/Narrative:: Patient on his postoperative day 1. States that the pain is really under control and he has used the GAS OPERATIONS ANALYST pump only once last night. Denies nausea, started on liquid diet and tolerating well. Ambulating to the restroom, denies any weakness or numbness in lower extremities. No anesthesia complications noted.
[2019-10-26] MEDS ORDERED: Sodium Chloride 0.45% 1,000 ML IV SCH (08:45)
[2019-10-26] MEDS ORDERED: Polyethylene Glycol 3350 Powder 17 GM Packet PO SCH (09:00)
[2019-10-26] MEDS ORDERED: Simvastatin 20 MG Tab PO SCH (09:00)
[2019-10-26] MEDS ORDERED: metFORMIN 500 MG Tab PO SCH (09:00)
--- NOTE | 2019-10-26 09:03 | PCM.SN.2 ---
- Free Text/Narrative Note: POD 1 s/p Michi incisional hernia repair S: pain well controlled overnight. I/O cath x2 but subsequently able to void spontaneously. Passing flatus, tolerating clears. GENIA drain with minimal output. O: AF-VSS no distress Comfortably breathing on 2 L NC RRR Abd dressing clean and dry, GENIA drain with minimal serosanguinous drainage A: Doing well after incisional hernia repair. Anticipate 1-2 more nights in house. 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
[2019-10-26] MEDS: Docusate Sodium 100 MG Cap PO SCH (09:14)
[2019-10-26 11:36] VITALS: BP 109/69; PULSE 67
--- NOTE | 2019-10-26 13:02 | PCM.DCSUM1 ---
Discharge Summary - Hospital Course Free Text/Narrative:: Admitted following elective incisional hernia repair. Did well post-op, with minimal pain. Tolerated diet, passed flatus, voided, ambulated, all without issue. GENIA drain removed on post-op day one with minimal serosanguinous output. Deemed fit for discharge to home on post-op day one. - Discharge Data Discharge Date: 10/26/19 Discharge Disposition: Home, Self-Care 01 Condition: Good - Referral to Home Health Primary Care Physician: Nellie Colby PA-C - Patient Summary/Data Operative Procedure(s) Performed: Open retrorectus mesh repair of incisional hernia - Patient Instructions Diet: Usual Diet as Tolerated Activity: No Lifting Over 10 Pounds Showering/Bathing: June Shower Wound/Incision Care: Keep Operative Site/Wound Site Clean and Dry Notify Provider of: Fever, Increased Pain, Swelling and Redness, Drainage, Nausea and/or Vomiting - Discharge Plan *PRESCRIPTION DRUG MONITORING PROGRAM REVIEWED*: Not Applicable *COPY OF PRESCRIPTION DRUG MONITORING REPORT IN PATIENT LOREN: Not Applicable Prescriptions/Med Rec: oxyCODONE 5 mg PO Q4H PRN #20 tab PRN Reason: Pain Home Medications: Home Meds atorvaSTATin Calcium [Lipitor] 20 mg PO DAILY 04/07/19 [History] metFORMIN HCl [Metformin HCl] 1,000 mg PO BID 04/07/19 [History] oxyCODONE 5 mg PO Q4H PRN #10 tab 04/11/19 [Rx] Aspirin 81 mg PO DAILY 10/25/19 [History] oxyCODONE 5 mg PO Q4H PRN #20 tab 10/26/19 [Rx] Oxygen Therapy Mode: Room Air Patient Handouts: Steps to Quit Smoking, [id number] Referrals: Bunny Georges MD [Physician] - - Discharge Summary/Plan Comment DC Time >30 min.: No - Patient Data Vitals - Most Recent: Last Vital Signs Temp 36.8 C 10/26/19 11:34 Pulse 67 10/26/19 11:34 Resp 24 H 10/26/19 11:34 BP 109/69 10/26/19 11:34 Pulse Ox 94 L 10/26/19 11:34 Weight - Most Recent: 103.51 kg I&O - Last 24 hours: Intake & Output 10/25/19 10/26/19 10/26/19 22:59 06:59 14:59 Intake Total 4800 2144 Output Total 0 1500 Balance 4800 644 Lab Results - Last 24 hrs: Laboratory Results - last 24 hr 10/25/19 10/25/19 10/26/19 Range/Units 18:39 23:16 05:02 WBC 12.43 H (4.23-9.07) K/mm3 RBC 4.40 L (4.63-6.08) M/mm3 Hgb 13.7 D (13.7-17.5) gm/dl Hct 41.8 (40.1-51.0) % MCV 95.0 H (79.0-92.2) fl MCH 31.1 (25.7-32.2) pg MCHC 32.8 (32.2-35.5) g/dl RDW Std Deviation 49.5 H (35.1-43.9) fL Plt Count 219 (163-337) K/mm3 MPV 10.1 (9.4-12.3) fl Neut % (Auto) 81.8 H (34.0-67.9) % Lymph % (Auto) 10.0 L (21.8-53.1) % Todd % (Auto) 7.9 (5.3-12.2) % Eos % (Auto) 0.1 L (0.8-7.0) Baso % (Auto) 0.0 L (0.1-1.2) % Neut # (Auto) 10.18 H (1.78-5.38) K/mm3 Lymph # (Auto) 1.24 L (1.32-3.57) K/mm3 Todd # (Auto) 0.98 H (0.30-0.82) K/mm3 Eos # (Auto) 0.01 L (0.04-0.54) K/mm3 Baso # (Auto) 0.00 L (0.01-0.08) K/mm3 Sodium (136-145) mEq/L Potassium (3.5-5.1) mEq/L Chloride (98-107) mEq/L Carbon Dioxide (21-32) mEq/L Anion Gap (5-15) BUN (7-18) mg/dL Creatinine (0.7-1.3) mg/dL Est Cr Clr Drug Dosing mL/min Estimated GFR (MDRD) (>60) mL/min BUN/Creatinine Ratio (14-18) Glucose (74-106) mg/dL POC Glucose 171 H 151 H (70-105) mg/dL Calcium (8.5-10.1) mg/dL 10/26/19 10/26/19 10/26/19 Range/Units 05:02 06:57 12:04 WBC (4.23-9.07) K/mm3 RBC (4.63-6.08) M/mm3 Hgb (13.7-17.5) gm/dl Hct (40.1-51.0) % MCV (79.0-92.2) fl MCH (25.7-32.2) pg MCHC (32.2-35.5) g/dl RDW Std Deviation (35.1-43.9) fL Plt Count (163-337) K/mm3 MPV (9.4-12.3) fl Neut % (Auto) (34.0-67.9) % Lymph % (Auto) (21.8-53.1) % Todd % (Auto) (5.3-12.2) % Eos % (Auto) (0.8-7.0) Baso % (Auto) (0.1-1.2) % Neut # (Auto) (1.78-5.38) K/mm3 Lymph # (Auto) (1.32-3.57) K/mm3 Todd # (Auto) (0.30-0.82) K/mm3 Eos # (Auto) (0.04-0.54) K/mm3 Baso # (Auto) (0.01-0.08) K/mm3 Sodium 138 (136-145) mEq/L Potassium 4.8 (3.5-5.1) mEq/L Chloride 101 (98-107) mEq/L Carbon Dioxide 31 (21-32) mEq/L Anion Gap 10.8 (5-15) BUN 12 (7-18) mg/dL Creatinine 0.9 (0.7-1.3) mg/dL Est Cr Clr Drug Dosing 107.82 mL/min Estimated GFR (MDRD) > 60 (>60) mL/min BUN/Creatinine Ratio 13.3 L (14-18) Glucose 161 H (74-106) mg/dL POC Glucose 113 H 124 H (70-105) mg/dL Calcium 8.5 (8.5-10.1) mg/dL Med Orders - Current: Current Medications Acetaminophen (Tylenol) 975 mg PO Q8H [facility] Last Admin: 10/26/19 05:19 Dose: 975 mg Documented by: Docusate Sodium (Colace) 100 mg PO BID [facility] Last Admin: 10/26/19 09:14 Dose: 100 mg Documented by: Heparin Sodium (Porcine) (Heparin Sodium) 5,000 units SUBCUT Q8H [facility] Last Admin: 10/26/19 05:19 Dose: 5,000 units Documented by: Sodium Chloride (Sodium Chloride 0.45%) 1,000 mls @ 50 mls/hr IV ASDIRECTED [facility] Last Admin: 10/26/19 09:15 Dose: 50 mls/hr Documented by: Metformin HCl (Glucophage) 1,000 mg PO BID [facility] Last Admin: 10/26/19 09:13 Dose: 1,000 mg Documented by: Morphine Sulfate (Morphine Inspecting Machine Adjuster 30 Mg In 30 Ml) 0 mg IV ASDIRECTED [facility]; Protocol Last Admin: 10/25/19 20:01 Dose: 30 mg Documented by: Ondansetron HCl (Zofran) 4 mg IVPUSH Q6H PRN PRN Reason: NAUSEA Oxycodone HCl (Oxycodone) 5 mg PO Q4H PRN PRN Reason: Pain (moderate 4-6) Polyethylene Glycol (Miralax) 17 gm PO DAILY [facility] Last Admin: 10/26/19 09:11 Dose: 17 gm Documented by: Simvastatin (Zocor) 20 mg PO DAILY [facility] Last Admin: 10/26/19 09:14 Dose: 20 mg Documented by: Discontinued Medications Bupivacaine HCl (Sensorcaine-Mpf 0.5%) Confirm Administered Dose 10 ml .ROUTE .STK-MED ONE Stop: 10/25/19 07:12 Last Admin: 10/25/19 08:45 Dose: 7 ml Documented by: Bupivacaine HCl/Epinephrine Bitart (Marcaine 0.5%/Epinephrine 1:200,000) Confirm Administered Dose 50 ml .ROUTE .STK-MED ONE Stop: 10/25/19 07:17 Last Admin: 10/25/19 08:45 Dose: 50 ml Documented by: Dexmedetomidine HCl (Precedex) Confirm Administered Dose 200 mcg .ROUTE .STK-MED ONE Stop: 10/25/19 06:54 Last Admin: 10/25/19 14:17 Dose: Not Given Documented by: Diphenhydramine HCl (Benadryl) 25 mg IVPUSH Q6H PRN PRN Reason: Pruritis Stop: 10/25/19 13:00 Fentanyl (Sublimaze) Confirm Administered Dose 100 mcg .ROUTE .STK-MED ONE Stop: 10/25/19 07:07 Fentanyl (Sublimaze) 100 mcg IVPUSH Q5M PRN PRN Reason: Pain Stop: 10/25/19 13:00 Last Admin: 10/25/19 12:07 Dose: 100 mcg Documented by: Glycopyrrolate () Confirm Administered Dose 1 mg .ROUTE .STK-MED ONE Stop: 10/25/19 11:22 Lactated Ringer's (Ringers, Lactated) 1,000 mls @ 125 mls/hr IV ASDIRECTED [facility] Stop: 10/25/19 23:00 Last Infusion: 10/25/19 18:03 Dose: 150 mls/hr Documented by: Clindamycin Phosphate 900 mg/ (Sodium Chloride) 150 mls @ 300 mls/hr IV ONETIME ONE Stop: 10/25/19 08:29 Last Admin: 10/25/19 07:59 Dose: 300 mls/hr Documented by: Lactated Ringer's (Ringers, Lactated) Confirm Administered Dose 1,000 mls @ as directed .ROUTE .ST-MED ONE Stop: 10/25/19 08:42 Lactated Ringer's (Ringers, Lactated) Confirm Administered Dose 1,000 mls @ as directed .ROUTE .ST-MED ONE Stop: 10/25/19 10:18 Lactated Ringer's (Ringers, Lactated) 1,000 mls @ 150 mls/hr IV ASDIRECTED [facility] Last Admin: 10/26/19 06:59 Dose: 150 mls/hr Documented by: Ondansetron HCl 4 mg/ Sodium (Chloride) 52 mls @ 100 mls/hr IV Q6H PRN PRN Reason: Nausea Lidocaine/Sodium Bicarbonate (Buffered Lidocaine 1% In Ns 8.4%) 0.25 ml IDERM ONETIME PRN PRN Reason: Prior to IV Start Stop: 10/25/19 18:00 Last Admin: 10/25/19 07:18 Dose: 0.25 ml Documented by: Midazolam HCl (Versed 1 Mg/Ml) Confirm Administered Dose 4 mg .ROUTE .STK-MED ONE Stop: 10/25/19 07:07 Miscellaneous Medication (Phenylephrine 1 Mg/10 Ml-Ns) Confirm Administered Dose 1 mg IV .STK-MED ONE Stop: 10/25/19 09:28 Miscellaneous Medication (Phenylephrine 1 Mg/10 Ml-Ns) Confirm Administered Dose 1 mg IV .STK-MED ONE Stop: 10/25/19 10:23 Morphine Sulfate (Duramorph Pf) Confirm Administered Dose 10 mg .ROUTE .STK-MED ONE Stop: 10/25/19 08:04 Morphine Sulfate (Morphine Inspecting Machine Adjuster 30 Mg In 30 Ml) 0 mg IV ASDIRECTED [facility]ICIA; Protocol Neostigmine Methylsulfate (Neostigmine Methylsulfate) Confirm Administered Dose 5 mg .ROUTE .STK-MED ONE Stop: 10/25/19 11:22 Ondansetron HCl (Zofran) Confirm Administered Dose 8 mg .ROUTE .STK-MED ONE Stop: 10/25/19 09:29 Ondansetron HCl (Zofran) 4 mg IVPUSH ONETIME PRN PRN Reason: Nausea/Vomiting Stop: 10/25/19 14:00 Propofol (Diprivan 20 Ml) Confirm Administered Dose 400 mg .ROUTE .STK-MED ONE Stop: 10/25/19 07:06 Rocuronium Dixie (Zemuron) Confirm Administered Dose 50 mg .ROUTE .STK-MED ONE Stop: 10/25/19 09:16 Sodium Chloride (Saline Flush) 10 ml FLUSH ASDIRECTED PRN PRN Reason: Keep Vein Open Stop: 10/25/19 18:00
== END 2019-10-26 13:40 | disposition home or self-care (01) | DRG 227 ==
LOC: JD.SDS 07:05 → JD.MS 07:05 → JD.SDS 13:14
PROVIDERS: ADMIT Surgery; ATTEND Surgery
PROC: 0WUF0JZ Supplement Abdominal Wall with Synthetic Substitute, Open Approach (ICD-10-PCS; principal; 2019-10-25)
DX: K43.2 Incisional hernia without obstruction or gangrene (principal); E78.5 Hyperlipidemia, unspecified; G47.30 Sleep apnea, unspecified; J45.909 Unspecified asthma, uncomplicated; Z96.651 Presence of right artificial knee joint; Z88.2 Allergy status to sulfonamides; Z88.1 Allergy status to other antibiotic agents; Z79.82 Long term (current) use of aspirin; Z79.899 Other long term (current) drug therapy; I25.2 Old myocardial infarction; Z90.89 Acquired absence of other organs; Z95.1 Presence of aortocoronary bypass graft
CPT/HCPCS: 00752; 36415; 51701; 51798; 80048; 82962; 85025; 94762; A9270-GY; C1781; J0330; J1644; J2250; J2270; J2274; J2370; J2405; J2704; J2710; J3010; J3490; J7030; J7050; J7120